=== PATIENT | female | born 1955 | race Caucasian/White ===

== ENCOUNTER 2024-06-27 12:36 | Emergency (ER) | payer MEDICARE, MEDICAID, SELFPAY ==
--- NOTE | ~2024-06-27 | XR_ITS ---
EXAMINATION: XR chest 1V portable DATE: 06/27/2024 13:28 INDICATION: Cough and shortness of breath TECHNIQUE: frontal view of the chest was obtained. COMPARISON: Chest radiograph dated 06/25/2024 FINDINGS: Sk[place]old projects over the lateral right lung. No focal airspace opacities, pulmonary edema, pleural effusion or pneumothorax. The cardiomediastinal silhouette is normal. Three lead pacemaker/AICD seen with leads projecting over the expected locations of the right atrial appendage, apex of the right ve ntricle and overlying the left ventricle likely having traversed the coronary sinus. IMPRESSION: 1. No acute cardiopulmonary disease. Reviewed, dictated and finalized at location A. OISOTOPE TECHNOLOGIST
--- NOTE | 2024-06-27 12:59 | ECG_ITS ---
Test Date: 2024-06-27 13:37:57 Measurements Intervals [place] Rate: 64 P: 59 UT: 143 QRS: 66 QRSD: 131 T: 74 QT: 435 QTc: 450 Interpretive Statements ELECTRONIC VENTRICULAR PACEMAKER ABNORMAL RHYTHM ECG Electronically Signed On 06-27-2024 18:01:11 HERB DOCTOR by Higinio Gil M.D.
[2024-06-27 13:23] LABS: Basophils Absolute Auto 0.1 K/mm3 (0.0-0.1); Basophils Percent Auto 1.5 % (0.2-1.2); Eosinophils Percent Auto 0.4 % (0-4.4); Hematocrit 43.8 % (37.0-47.0); Hemoglobin 14.6 g/dL (12.0-15.0); Lymphocytes Absolute Auto 1.78 K/mm3 (0.9-3.2); Lymphocytes Percent Auto 39.3 % (18.3-44.2); Mean Corpuscular HGB Conc 33.3 g/dl (32-36); Mean Corpuscular Hemoglobin 31.3 pg (26-34); Mean Platelet Volume 9.7 fl (7.4-10.4); Monocytes Absolute Auto 0.7 K/mm3 (0.1-0.6); Monocytes Percent Auto 14.6 % (2.6-8.5); Neutrophils Percent Auto 44.2 % (45.5-73.1); Platelet Count Result 172 k/mm3 (150-375); Red Blood Count 4.66 M/mm3 (4.2-5.4); White Blood Count 4.5 K/mm3 (4.5-10.0)
[2024-06-27] MEDS: IPRATROPIUM 0.5 MG/ALBUTEROL SULFATE 2.5 MG AMPUL.NEB 3 ML INHALATION ×3 (13:25→13:50)
[2024-06-27] MEDS: methylPREDNISolone SOD SUCC 125 MG VIAL IV PUSH (13:28)
[2024-06-27 13:33] LABS: Alanine Aminotransferase 19 U/L (6-35); Albumin Level 3.8 g/dL (3.5-5.1); Alkaline Phosphatase 58 U/L (38-126); Anion Gap 10 mmol/L (4-12); Aspartate Amino Transferase 34 U/L (14-36); Bilirubin,Total 0.6 mg/dL (0.2-1.3); Blood Urea Nitrogen 14 mg/dL (7-17); Calcium 8.2 mg/dL (8.4-10.2); Carbon Dioxide 23 mmol/L (22-30); Chloride 104 mmol/L (98-107); Estimated Glomerular Filt Rate > 60; Glucose 80 mg/dL (65-110); Magnesium 2.1 mg/dL (1.6-2.3); Potassium 4.1 mmol/L (3.4-5.0); Sodium 137 mmol/L (137-145)
[2024-06-27 13:34] LABS: Lactic Acid Reflex 0.8 mmol/L (0.7-2.0)
[2024-06-27 13:37] LABS: INR 1.1; Prothrombin Time 14.1 Seconds (11.1-14.7)
[2024-06-27 13:45] LABS: NT Pro B Type Natriuretic Pept 80 pg/mL (19.9-100); Troponin I < 0.012 ng/mL (0.000-0.034)
[2024-06-27 14:30] VITALS: BP 153/73; PULSE 85; RESP 16; TEMP 36.7; O2SAT 97
[2024-06-27 14:33] VITALS: O2SAT 98
[2024-06-27 14:34] VITALS: BP 125/79; PULSE 83; PULSE 85; RESP 17; O2SAT 98
--- NOTE | 2024-06-27 14:42 | ED_ITS ---
HPI - General Adult General Chief complaint: Shortness of Breath/Dyspnea Stated complaint: shortness of breath, flu positive Time Seen by Provider: 06/27/24 12:52 History of Present Illness HPI narrative: Patient is a 68-year-old female who presents emergency department with chief complaint of shortness of breath patient reports that she has the beginning stages of COPD and reports that she was diagnosed with influenza a on Thursday the patient states that she has been having increasing shortness of breath reports that she had difficulty sleeping throughout the night. Related Data Allergies Allergy/AdvReac Type Severity Reaction Status Date / Time azithromycin Allergy Intermediate Palpitation Verified 06/27/24 14:35 s Penicillins Allergy Intermediate Rash Verified 06/27/24 14:35 Sulfa (Sulfonamide Allergy Intermediate Hives Verified 06/27/24 14:35 Antibiotics) Review of Systems 2 Review of Systems: A 10 system review of systems was completed on the patient and is negative except for what is stated in the HPI. Nursing and ancillary documentation was reviewed. Exam 2 Narrative: GENERAL: Well-appearing, well-nourished, and in no acute distress. HEAD: Normocephalic, atraumatic. EYES: PERRLA and EOMI. ENT: Nares clear, no rhinorrhea or epistaxis. Mucous membranes moist. NECK: Supple. CHEST: Clear to auscultation. No respiratory distress. HEART: Regular rate and rhythm. No murmur heard. Normal peripheral pulses. ABDOMEN: Soft, nontender, nondistended, normal active bowel sounds. EXTREMITIES: Normal range of motion. No edema. SKIN: Warm, dry, no rash. NEURO: No focal deficits. Alert and oriented x3. PSYCH: Normal mood and affect. Course Vital Signs Vital signs: Vital Signs Temperature 36.7 C 06/27/24 14:30 Pulse Rate 85 06/27/24 14:30 Respiratory Rate 16 06/27/24 14:30 Blood Pressure 153/73 H 06/27/24 14:30 Pulse Oximetry 97 06/27/24 14:30 Oxygen Delivery Room Air 06/27/24 14:30 Temperature 36.7 C 06/27/24 14:30 Pulse Rate 85 06/27/24 14:34 Respiratory Rate 17 06/27/24 14:34 Blood Pressure 125/79 06/27/24 14:34 Pulse Oximetry 98 06/27/24 14:34 Oxygen Delivery Room Air 06/27/24 14:33 Medical Decision Making MDM Narrative Medical decision making narrative: Differential diagnosis includes pneumonia, upper respiratory infection, COPD exacerbation Patient received IV Solu-Medrol and a DuoNeb in the ER. Patient is feeling much better at this time. Laboratory studies were obtained on the patient showed a normal CBC normal CMP urinalysis showed no evidence UTI chest x-ray showed no focal infiltrate Vital Signs Vital Signs: Vital Signs Temperature 36.7 C 06/27/24 14:30 Pulse Rate 85 06/27/24 14:30 Respiratory Rate 16 06/27/24 14:30 Blood Pressure 153/73 H 06/27/24 14:30 Pulse Oximetry 97 06/27/24 14:30 Oxygen Delivery Room Air 06/27/24 14:30 Temperature 36.7 C 06/27/24 14:30 Pulse Rate 85 06/27/24 14:34 Respiratory Rate 17 06/27/24 14:34 Blood Pressure 125/79 06/27/24 14:34 Pulse Oximetry 98 06/27/24 14:34 Oxygen Delivery Room Air 06/27/24 14:33 Lab Data 06/27/24 13:11 06/27/24 13:11 Labs: Lab Results 06/27/24 06/27/24 Range/Units 13:11 14:14 WBC 4.5 (4.5-10.0) K/mm3 RBC 4.66 (4.2-5.4) M/mm3 Hgb 14.6 (12.0-15.0) g/dL Hct 43.8 (37.0-47.0) % MCV 94.0 (80-100) fl MCH 31.3 (26-34) pg MCHC 33.3 (32-36) g/dl RDW 14.0 (11.5-14.5) % Plt Count 172 (150-375) k/mm3 MPV 9.7 (7.4-10.4) fl Immature Gran % (Auto) 0.0 (0-0.5) % Neut % (Auto) 44.2 L (45.5-73.1) % Lymph % (Auto) 39.3 (18.3-44.2) % [place] % (Auto) 14.6 H (2.6-8.5) % Eos % (Auto) 0.4 (0-4.4) % Baso % (Auto) 1.5 H (0.2-1.2) % Lymph # (Auto) 1.78 (0.9-3.2) K/mm3 [place] # (Auto) 0.7 H (0.1-0.6) K/mm3 Eos # (Auto) 0.0 (0-0.3) K/mm3 Baso # (Auto) 0.1 (0.0-0.1) K/mm3 Abs Immat Gran (auto) 0.00 (0.00-0.031) K/mm3 Absolute Neuts (auto) 2.0 (1.3-6.7) K/mm3 Absolute Nucleated RBC 0.000 (0.0-0.012) K/mm3 Nucleated RBC % 0.0 (0.0-0.2) % PT 14.1 (11.1-14.7) Seconds INR 1.1 APTT 29.0 (22.3-36.8) Seconds Sodium 137 (137-145) mmol/L Potassium 4.1 (3.4-5.0) mmol/L Chloride 104 (98-107) mmol/L Carbon Dioxide 23 (22-30) mmol/L Anion Gap 10 (4-12) mmol/L BUN 14 (7-17) mg/dL Creatinine 0.84 (0.7-1.0) mg/dL Estim Creat Clear Calc Not Reportable Estimated GFR > 60 (59 - ) Glucose 80 (65-110) mg/dL Lactic Acid 0.8 (0.7-2.0) mmol/L Calcium 8.2 L (8.4-10.2) mg/dL Magnesium 2.1 (1.6-2.3) mg/dL Total Bilirubin 0.6 (0.2-1.3) mg/dL AST 34 (14-36) U/L ALT 19 (6-35) U/L Alkaline Phosphatase 58 (38-126) U/L Troponin I < 0.012 (0.000-0.034) ng/mL NT-Pro-B Natriuret Pep 80 (19.9-100) pg/mL Total Protein 7.0 (6.3-8.2) g/dL Albumin 3.8 (3.5-5.1) g/dL Urine Color Yellow (Yellow) Urine Appearance Clear (Clear) Urine pH 5.5 (5.0-9.0) Ur Specific [place] 1.017 (1.001-1.035) Urine Protein Negative (Negative) mg/dL Urine Glucose (UA) Negative (Negative) mg/dL Urine Ketones Negative (Negative) mg/dL Ur Blood (Man) Negative (Negative) Urine Nitrate Negative (Negative) Urine Bilirubin Negative (Negative) Urine Urobilinogen 1.0 (<2.0) mg/dL Leukocyte Esterase Rfl Negative (Negative) VIKTORIA/UL Discharge Plan Discharge Clinical Impression: Influenza A Patient Disposition: Home, Self-Care Condition: Stable Instructions: Antibiotic Form, Influenza (ED), Acute Bronchitis (ED) Patient Language: Bahamian Prescriptions: New prednisone 20 mg tablet 40 mg PO DAILY 5 Days Qty: 10 0RF No Action benzonatate 100 mg capsule 100 mg PO TID PRN (Reason: cough) Qty: 14 0RF ondansetron 4 mg tablet,disintegrating 4 mg PO Q8H PRN (Reason: nausea and vomiting) Qty: 14 0RF Follow-up/Referrals: PHYSICIAN,DRUPAL PHP DEVELOPER [Primary Care Provider] - Parker Stratton MD [Physician] - Time of Disposition: 14:55
[2024-06-27 14:43] LABS: Add Urine Microscopic? NO; Appearance Urine Clear (Clear); Bilirubin Urine Negative (Negative); Blood Urine Negative (Negative); Color Urine Yellow (Yellow); Glucose Urine UA Negative (Negative); Ketones Urine Negative (Negative); Leukocyte Esterase Ur Negative LEU/UL (Negative); Nitrate Urine Negative (Negative); Protein Urine Negative (Negative); Specific Grav Ur 1.017 (1.001-1.035); pH Urine 5.5 (5.0-9.0)
== END 2024-06-27 15:00 | disposition home or self-care (01) ==
PROVIDERS: Emergency Provider Emergency Medicine
DX: J10.1 Influenza due to other identified influenza virus with other respiratory manifestations (principal); Z20.822 Contact with and (suspected) exposure to COVID-19; J44.9 Chronic obstructive pulmonary disease, unspecified
CPT/HCPCS: 36415; 71045; 80053; 81003; 83605; 83735; 83880; 84484; 85025; 85610; 85730; 93005; 94640; 96374; 99284; J2919

== ENCOUNTER 2025-03-13 13:39 | Outpatient (CLI) | payer MEDICARE, MEDICAID, SELFPAY ==
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
--- NOTE | ~2025-03-13 | CT_ITS ---
EXAMINATION: CT foot RT wo con DATE: 03/13/2025 14:15 INDICATION: Nonunion right foot metatarsal fractures TECHNIQUE: Computed tomography (CT) of the right foot was performed without intravenous contrast. Automated exposure control and iterative reconstruction technique were employed. The dose-length product was 413.05 mGy-cm. COMPARISON: None FINDINGS: Instrumented arthrodesis across the first-third tarsal metatarsal joints with dorsal plate and screw fixations. No lucency surrounding the screws to suggest loosening or infection. There is an additional screw spanning the first tarsometatarsal joint. There appears be solid osseous fusion across portions of the joint spaces. There is a healing nondisplaced intra-articular fracture at the lateral base of the fifth metatarsal with fusion across portions of the fracture plane although there is still some additional lucency along the peripheral margins of the fracture. There is suggestion of buckling along the lateral nonarticular cortex of the proximal cuboid also suggestive of sequela of old healed fracture. Additional likely old healed fracture at the anterior process of the calcaneus. Alignment of the right foot remains essentially anatomic. No acute fractures identified. 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 Small Achilles calcaneal spur. Soft tissues are unremarkable. IMPRESSION: 1. Instrumented first-third tarsal metatarsal arthrodesis with osseous fusion. 2. Advanced healing with solid osseous bridging across a nondisplaced intra- articular fracture at the lateral base of the fifth metatarsal. 3. Suggestion of additional old healed fractures at the lateral cortex of the cuboid and at the anterior process of the calcaneus also an essentially anatomic alignment. Reviewed, dictated and finalized at location A. IMPRESSION: 1. Instrumented first-third tarsal metatarsal arthrodesis with osseous fusion. 2. Advanced healing with solid osseous bridging across a nondisplaced intra-art icular fracture at the lateral base of the fifth metatarsal. 3. Suggestion of additional old healed fractures at the lateral cortex of the c uboid and at the anterior process of the calcaneus also an essentially anatomic alignment.
--- OUTSIDE RECORDS SUMMARY | 2025-03-13 14:35 | XMS_ITS | Clinical Summary ---
Author Organization [facility] and [facility] Address [address] [place] [address] Care Team Providers Care Case Finisher Name Role Phone Lopez Andersen MD Primary Care Provider Source Comments This information has been disclosed to you from records protected by Federalconfidentiality rules (42 CFR Part 2). The Federal rules prohibit you frommaking any further disclosure of this informationunless further disclosure isexpressly permitted by the written consent of the person to whom it pertains oras otherwise permitted by 42 CFR Part 2. The information released containselements of the medical record deemed pertinent for the care of the patient.[facility] and [facility] Allergies Active Allergy Reactions Criticality Noted Date Comments Aminobenzoic Acid Unknown 05/22/2014 Anesthetics - Amide Type - Select Amino Amides Palpitations Medium 08/05/2014 May have been more a side effect of an epinephrine-contain ing local dental anesthetic Anesthetics - Belkis Type- Parabens Unknown Medium 08/05/2014 Aspirin Unknown 03/17/2014 Atazanavir Other (Specify with Comments) Medium 08/05/2014 Elevated AST/ALT 10 x normal. Occurred in combination with raltegravir, so it is unknown which drug was causative. Carvedilol Shortness of Breath 08/06/2020 Codeine Unknown 03/17/2014 Iodinated Contrast Media Unknown 03/26/2023 Diazepam Altered mental statu s - mild Medium 08/05/2014 Delerium Erythromycin Palpitations 03/09/2017 Erythromycin Base Unknown 03/17/2014 Fluticasone Shortness of Breath 06/09/2018 Penicillins Unknown,Hives/urtica r ia 03/17/2014 Raltegravir Other (Specify with Comments) Medium 08/05/2014 Elevated AST/ALT 10 x normal. Occurred in combination with atazanavir, so it is unknown which drug was causative. Sulfa (Sulfonamide Antibiotics) Hives/urticaria,Itchi ng, pruritus 03/17/2014 Sulfasalazine Hives/urticaria 03/09/2017 Tetracycline Unknown 03/17/2014 Medications * This document contains information received from the source organization and may not represent a complete record from that organization. hydroCHLOROthiazid e (HYDRODIURIL) 12.5 mg tablet take 1 Tablet (12.5 mg total) by mouth every day Active nicotine (Nicoderm) 21 mg/24 hr patch apply 1 Patch to skin daily Active aspirin 81 mg chewable tablet take 1 Tablet (81 mg total) by mouth daily Active doravirine 100 mg TABS take 1 Tablet by mouth every day Active AdderalL 30 mg TABS Take 30 mg by mouth 2 times a day 60 tablet 5 Active methylphenidate HCl (Ritalin) 10 mg tabletIndications: Attention deficit hyperactivity disorder (ADHD), unspecified ADHD type Take 1 tablet by mouth 2 (two) times daily. 60 tablet 5 Active methylphenidate HCl (Ritalin) 20 mg tablet Take 1 tablet by mouth 2 (two) times daily. 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 01/04/03: LEEP (-). 09/27/03: ECC (-). 11/10/03: Cx bx (- ). 01/07/07: Cx bx (-); ECC with multiple dsyplastic epitherlium. 05/11/07: Cone bx with carcinoma in-situ, margins clear; ECC (-). 11/13/10: Vaginal bx with acute inflammation and necrosis; suture material. Recurrent herpes labialis 01/02/2014 Osteoarthritis 07/14/2013 Chronic hepatitis C 05/31/2013 Overview (03/28/2014): Genotype 3a GERD (gastroesophageal reflux disease) 3 Human immunodeficiency virus (HIV) disease Overview (11/11/2014): Diagnosed in 08/06. Initial CD4 = jillian 500/39%. Maximum viral load 93k in 09/15. No h/o AIDS dx or OI's. Triple NRTI therapy with long-term poor tolerance and chronic underdosing. However, consistent full viral suppression with minimal NRTI resistance on prior genotype. No HLA [id number] on file. 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 09/27/03: ASCUS; (+) high risk HPV. 11/26/06: HGSIL, carcinoma in-situ. 06/09/08: (-). 05/24/09: (-). 11/13/10: (-). 01/13/12: Reactive cellular changes. Chronic nausea Overview (08/05/2014): Secondary to antiretroviral therapy Atrophic vaginitis Resolved Problems Problem Noted Date Diagnosed Date Resolved Date Dizziness 03/27/2023 03/27/2023 Encounters Date Type Department Care Team Description 02/08/2025 Refill POSITIVE CARE - [address] [place] [address] Louis Burleson MD Attention deficit hyperactivity disorder (ADHD), unspecified ADHD type [F90.9] from Last 3 Months Immunizations Immunization Administration Dates Next Due Hep A, adult 01/08/2001 Pneumococcal polysaccharide (PPSV23) (Pneumovax) 04/24/2008 Family History Medical History Relation Comments HIV Brother COPD Father Cancer Father Mesothelioma Relation Status Comments Brother Father Social History Tobacco Use Types Packs/Day Years Used Date Smoking Tobacco: Former Cigarettes 0.5 55 0 07/27/1964 - 07/27/2019 Smokeless Tobacco: Never Tobacco Cessation:Counseling Given: Not Answered Comments:on and off Alcohol Use Standard Drinks/Week Comments Yes 0 (1 standard drink = 0.6 oz pure alcohol) Lemon drop martini occasionally Comments No Sex and Gender Information Value Date Recorded Sex Assigned at Not on file Legal Sex Female 12:35 AM PDT Gender Identity Not on file Sexual Orientation Not on file Last Filed Vital Signs Vital Sign Reading Time Taken Comments Blood Pressure 128/62 03/27/2023 11:00 PM PDT Pulse 64 03/27/2023 11:00 PM PDT Temperature 36.7 C (98.1 F) 03/27/2023 11:00 PM PDT Respiratory Rate 19 03/27/2023 11:00 PM PDT Oxygen Saturation 97% 03/27/2023 11:00 PM PDT Inhaled Oxygen Concentration - - Weight 69.2 kg (152 lb 8.9 oz) 03/27/2023 1:41 A M PDT Height 160 cm (5' 3) 03/26/2023 12:37 PM PDT Body Mass Index 27.02 03/26/2023 12:37 PM PDT Plan of Treatment Health Maintenance Due Date Last Done Comments CT Colonography 1953 Colonoscopy 1955 Colonoscopy 1953 Colorectal Cancer Screening 1953 FIT (Fecal Immunochemical Test) 1953 Fecal DNA 1953 Sigmoidoscopy 1953 DTaP/Tdap/Td Immunizations ( 1 - Tdap) 1972 Zoster Vaccine (1 of 2) 1972 Pneumococcal Vaccine 50+ Yea rs (2 of 2 - PCV) 04/24/2009 04/24/2008 RSV Vaccine (1 - Risk 60-74 years 1-dose series) 2013 BONE DENSITY SCREEN 2018 MAMMOGRAM 07/12/2020 07/12/2018, 06/2017, 06/20/2016, Additional history exists Lung Cancer Screening 06/17/2022 06/17/2021, 020 INFLUENZA VACCINE (#1) 2025 06/22/2018 (Hope Betancur) Hepatitis B Screening Discussion Completed 08/30/19 15 HEPATITIS C SCREENING Discontinued 09/09/2017 Medical Devices Implanted Type Area Territory Sales Manager Medical Device Identifier Shelf Expiration Date Model / Serial / Lot Pacemaker Implanted:01/06 (Quantity not on file) Pacemaker [employer] [id number] / / Description:Medtronic [place] , model # [id number] RA- 5076-45cm LV- [id number] RV- [id number] Procedures Procedure Name Priority Date/Time Associated Diagnosis Comments MAMMO BREAST SCREENING TOMOSYNTHESIS Routine 07/12/2018 11:41 AM PST Screening breast examination HEPATITIS C RNA PCR QUANTITATIVE Routine 09/09/2017 4:51 PM PDT Chronic hepatitis C without hepatic coma (CMS-HCC) HBSAG Routine 08/29/2014 2:00 PM PDT Health care maintenance from Last 3 Months or Most Recently Relevant to Health Maintenance Results * Mammo Breast Screening Tomosynthesis (07/12/2018 11:41 AM PST) Anatomical Region Laterality Modality Breast Bilateral Mammography 07/12/2018 1:27 PM PST Impressions 07/12/2018 4:47 PM PST IMPRESSION: 1. RIGHT BREAST: Negative. BI-RADS 1. 2. LEFT BREAST: Negative. BI-RADS 1. 3. Recommend routine follow-up screening mammogram. If additional imaging is recommended, a [facility] Waste Collector will contact the patient to coordinate additional imaging. A lay letter regarding these findings will also be sent to the patient. This report will be faxed, mailed, or sent by [employer] electronic communication to the referring clinician upon finalization. Screening Guidelines: For asymptomatic women at average breast cancer risk, current guidelines recommend screening mammography every 1-2 years, starting at age 40-50 years. For asymptomatic women with a personal history of treated breast cancer who have not had bilateral mastectomies, current guidelines recommend mammography every year. The mammogram can be a screening or diagnostic examination, based on patient/provider preference. For the first 3 years following lumpectomy, Foster recommends the mammogram be a diagnostic examination. The addition of supplemental screening breast MRI for women at elevated breast cancer risk should be based on national guidelines including those of the [employer], the [employer] Cancer Society and the National Comprehensive Cancer Network. Physician to Physician Radiology Consult Line: Signed Narrative 07/12/2018 4:47 PM PST [facility] Breast Screen Jeff DATE: 07/12/2018 11:00 INDICATION: Female, 62 years old, asymptomatic, referred for screening mammogram. COMPARISON: 01/24/2015, 06/20/2016, and 07/09/2017 PROCEDURE COMMENTS: Full-field digital 2D (synthetic) and tomosynthesis mammogram images were obtained and computer-aided detection (CAD) was applied. FINDINGS: The breast tissue is almost entirely fatty. There are no significant masses, calcifications or other abnormalities. Procedure Note Vida Colunga MD - 07/12/2018 [facility] Breast Screen Jeff DATE: 07/12/2018 11:00 INDICATION: Female, 62 years old, asymptomatic, referred for screeningmammogram. COMPARISON: 01/24/2015, 06/20/2016, and 07/09/2017 PROCEDURE COMMENTS: Full-field digital 2D (synthetic) and tomosynthesismammogram images were obtained and computer-aided detection (CAD) wasapplied. FINDINGS: The breast tissue is almost entirely fatty. There are no significant masses, calcifications or other abnormalities. IMPRESSION: 1. RIGHT BREAST: Negative. BI-RADS 1. 2. LEFT BREAST: Negative. BI-RADS 1. 3. Recommend routine follow-up screening mammogram. If additional imaging is recommended, a [facility] Imaging[facility] will contact the patient to coordinate additional imaging.A lay letter regarding these findings will also be sent to the patient.This report will be faxed, mailed, or sent by [employer] to the referring clinician upon finalization. Screening Guidelines: For asymptomatic women at average breast cancer risk, current guidelinesrecommend screening mammography every 1-2 years, starting at age 40-50years. For asymptomatic women with a personal history of treated breast cancerwho have not had bilateral mastectomies, current guidelines recommendmammography every year. The mammogram can be a screening or diagnosticexamination, based on patient/provider preference. For the first 3 yearsfollowing lumpectomy, Foster recommends the mammogram be a diagnosticexamination. The addition of supplemental screening breast MRI for women at elevatedbreast cancer risk should be based on national guidelines including thoseof the [employer], the [employer] Cancer Society and [facility] Comprehensive Cancer Network. Physician to Physician Radiology Consult Line: Signed Louis Burleson MD IMG BREAST IMAGING O RDERABLES Final Result * (ABNORMAL) Hep C RNA PCR Quant (09/09/2017 4:51 PM PDT) Specimen Serum 2017 1:28 PM PDT [facility] HCV RNA Detected( A) Not Detected 2017 1:28 PM PDT [facility] Result 382,510 IU/mL 2017 1:28 PM PDT [facility] Result Log10 5.58 Log10 IU/mL 2017 1:28 PM PDT [facility] Blood BLOOD SPECIMEN / Unknown Venipuncture / Unknown 09/09/2017 4:51 PM PDT 09/09/2017 4:51 PM PDT Narrative [facility] - 2017 1:28 PM PDT TEST PARAMETERS AND METHODOLOGY Linear Range: 15 to 25,000,000 IU/mL (1.18 to 7.40 Log10 IU/mL) Methodology: Reverse Transcriptase-Polymerase Chain Reaction (RT-PCR) This test is approved by the U.S. Food and Drug Administration. Validated specimen type: Serum Result [facility] Lopez Andersen MD LAB BLOOD ORDERABLES Fi nal Result [facility] [address] [place], [place] [id number] * HBSAG (08/29/2014 2:00 PM PDT) HEP B Surface Antigen Negative Negative 08/29/2014 10:43 PM PDT [facility] Interpretation Screening for HBsAg is NEGATIVE. This result may not rule out infection with hepatitis B virus (HBV). If both HBsAg and total anti-HBc antibody are negative, then current HBV infection is unlikely. 08/29/2014 10:43 PM PDT [facility] Blood BLOOD SPECIMEN / Unknown Venipuncture / Unknown 08/29/2014 2:00 PM PDT 08/29/2014 2:00 PM PDT Lopez Andersen MD LAB BLOOD ORDERABLES Fi nal Result [facility] [address] [place] [address] from Last 3 Months or Most Recently Relevant to Health Maintenance Insurance MEDICARE [facility] Advance Directives Documents on File Type Date Recorded Patient Waste Collector Expl anation Advance Directives and Nanciein g Will 03/26/2023 1:47 PM * Cardiac Arrest - Full Code (Latest Code Status on File) Date Activated Date Inactivated Comments 03/27/2023 1:40 AM 03/28/2023 3:59 PM Question Answer Comments Intubation Outside Cardiac Arrest (Requires ICU) : Did Not discuss Other Interventions: Did Not Discuss Treatment Location: Did Not Discuss Philosophy of Care: Did Not Discuss Discussed With: Patient Care Teams Case Finisher Relationship Specialty [place] [address] [place] [address] PCP - General Internal Medicine 08/29/14
--- OUTSIDE RECORDS SUMMARY | 2025-03-13 14:35 | XMS_ITS | Encounter Summary ---
Author Organization [facility] and [facility] Address [address] [place] [address] Care Team Providers Care Accountant Name Role Phone Lopez Andersen MD Primary Care Provider Reason for Visit * Reason Comments Medication Refill Encounter Details Date Type Department Care Team (Late st Contact Info) Description 07/21/2018 Refill POSITIVE CARE - [address] Floor [place], [place] [id number] Sammy Pelletier MD [address] [place] [address] Pr[address]hu [facility] [address] [place], [place] [phone] Attention deficit hyperactivity disorder (ADHD), unspecified ADHD type [F90.9] Social History Tobacco Use Types Packs/Day Years Used Date Smoking Tobacco: Every Day Cigarettes 0.5 45 Smokeless Tobacco: Never Comments:on and off Alcohol Use Standard Drinks/Week Comments Yes 0 (1 standard drink = 0.6 oz pur e alcohol) Comments No Sex and Gender Information Value Date Recorded Sex Assigned at Not on file Legal Sex Female 12:35 AM PDT Gender Identity Not on file Sexual Orientation Not on file documented as of this encounter Miscellaneous Notes * Telephone Encounter - Linda Kang - 07/21/2018 1:00 PM PST CONSTANCE: 07/07/[address] Andersen documented in this encounter Plan of Treatment Not on file documented as of this encounter Visit Diagnoses Diagnosis Attention deficit hyperactivity disorder (ADHD), unspecified ADHD type documented in this encounter Additional Health Concerns Infection Onset Date Last Indicated Resolved Time PUI1 COVID-19 (2019-nCoV) 08/06/2020 08/06/2020 8:37 PM PST documented as of this encounter Care Teams Accountant Relationship Specialty [place] [address] [place] [address] PCP - General Internal Medicine 08/29/14 documented as of this encounter
--- OUTSIDE RECORDS SUMMARY | 2025-03-13 14:35 | XMS_ITS | Encounter Summary ---
Author Organization [facility] and [facility] Address [address] [place] [address] Care Team Providers Care Nursing Program Director Name Role Phone Lopez Andersen MD Primary Care Provider Reason for Visit * Reason Comments Medication Refill Encounter Details Date Type Department Care Team (Late st Contact Info) Description 09/20/2018 Refill Positive Care [address] [address] Louis Burleson MD [address] [place], [place] [id number] Attention deficit hyperactivity disorder (ADHD), unspecified ADHD [...] encounter Miscellaneous Notes * Telephone Encounter - Sammy Pelletier MD - 09/20/2018 11:11 AM PDT Due 09/25; will fill then * Telephone Encounter - Linda Kang - 09/20/2018 11:01 AM PDT Refill request Say:02/2018 w/ bebeto Name from pharmacy: RITALIN 10MG TAB Will file in chart as: methylphenidate HCl (RITALIN) 10 mg TABS Sig: TAKE 1 TABLET BY MOUTH TWICE DAILY Disp: 60 Tab (Pharmacy requested: 60 Each) ? Refills: 0 Start: 09/20/2018 Class: E-Prescribe For: Attention deficit hyperactivity disorder (ADHD), unspecified ADHD type Requested on: 08/23/2018 documented in this encounter Plan of Treatment Not on file documented as of this encounter Visit Diagnoses Diagnosis Attention deficit hyperactivity disorder (ADHD), unspecified ADHD type documented in this encounter Additional Health Concerns Infection Onset Date Last Indicated Resolved Time PUI1 COVID-19 (2019-nCoV) 08/06/2020 08/06/2020 8:37 PM PST documented as of this encounter Care Teams Nursing Program Director Relationship Specialty [place] [address] [place] [address] PCP - General Internal Medicine 08/29/14 documented as of this encounter
--- OUTSIDE RECORDS SUMMARY | 2025-03-13 14:35 | XMS_ITS | Encounter Summary ---
Author Organization [facility] and [facility] Address [address] [place] [address] Care Team Providers Care Logging Crew Supervisor Name Role Phone Lopez Andersen MD Primary Care Provider Encounter Details Date Type Department Care Team (Latest Contact Info) Description 07/03/2020 Orders Only [facility] DEPT Provider, MD Yosef Social History Tobacco Use Types Packs/Day Years [...] on file documented as of this encounter Plan of Treatment Not on file documented as of this encounter Procedures Procedure Name Priority Date/Time Associated Diagnosis Comments [facility] OUTSIDE CARDIOLOGY - SCANNED 07/03/2020 12:00 AM PST documented in this encounter Results * [facility] OUTSIDE CARDIOLOGY - SCANNED (07/03/2020 12:00 AM PST) 07/03/2020 us Scan Provider ECG ORDERABLES Final Result documented in this encounter Visit Diagnoses Not on filedocumented in this encounter Additional Health Concerns Infection Onset Date Last Indicated Resolved Time PUI1 COVID-19 (2019-nCoV) 08/06/2020 08/06/2020 8:37 PM PST documented as of this encounter Care Teams Logging Crew Supervisor Relationship Specialty [place] [address] [place] [address] Internal [place] [address] PCP - General Internal Medicine 08/29/14 documented as of this encounter
--- OUTSIDE RECORDS SUMMARY | 2025-03-13 14:35 | XMS_ITS | Encounter Summary ---
Author Organization [facility] and [facility] Address [address] [place] [address] Care Team Providers Care Waste Water Worker Name Role Phone Lopez Andersen MD Primary [...] PST documented in this encounter Results * [facility] OUTSIDE CARDIOLOGY - SCANNED (07/03/2020 12:00 AM PST) 07/03/2020 us Scan Provider ECG ORDERABLES Final Result documented in this encounter Visit Diagnoses Not on filedocumented in this encounter Additional Health Concerns Infection Onset Date Last Indicated Resolved Time PUI1 COVID-19 (2019-nCoV) 08/06/2020 08/06/2020 8:37 PM PST documented as of this encounter Care Teams Waste Water Worker Relationship Specialty [place] [address] [place] [address], Internal Medicine [place] [address] PCP - General Internal Medicine 08/29/14 documented as of this encounter
--- OUTSIDE RECORDS SUMMARY | 2025-03-13 14:35 | XMS_ITS | Encounter Summary ---
Author Organization [facility] and [facility] Address [address] [facility] [place] [address] Care Team Providers Care Professor Of Family Medicine Name Role Phone Lopez Andersen MD Primary Care Provider Louis Burleson MD Unavailable [phone] Pcp, Giles Martinez Unavailable Unavailable Julia Oreilly MA Unavailable Louis Burleson MD Unavailable Jim Demarco RN Unavailable Unavailab Libia Hernandez RN Unavailable Encounter Details Date Type Department Care Team (Late st Contact Info) Description 01/05/2024 Bulk Order Quality Improvement [address] [place] [address] [place] [address] [place] [address] Social History Tobacco Use Types Packs/Day Years Used Date Smoking Tobacco: Some Days Cigarettes 1 50 Started: 10/01/1969; Last attempted to quit: 10/02/2019 Smokeless Tobacco: Never Alcohol Use Standard Drinks/Week Comments Not Currently 0 (1 standard drink = 0.6 oz pur e alcohol) once a month AUDIT-C Answer Date Recorded Frequency of Alcohol Consumption Never 07/25/2018 Average Number of Drinks Not on file 019 Frequency of Binge Drinking Not on file 07/09 Comments No Sex and Gender Information Value Date Recorded Sex Assigned at Not on file Legal Sex Female 11:31 AM PST Gender Identity Not on file Sexual Orientation Not on file Occupation Industry Job Start Date Job End Date Disabled Not on file Not on file Not on file Retired Not on file Not on file Not on file documented as of this encounter Plan of Treatment Not on file documented as of this encounter Visit Diagnoses Not on filedocumented in this encounter Care Teams Professor Of Family Medicine Relationship Specialty [place] [address] [place] [address] PCP - General Internal Medicine 07/16/18 Pcp, Giles Deng [facility] [address] [place] [address] PCP - Other Care Provider 06/08/22 [place] [address] [place] [id number] Psychotherapist Psychiatry 07/30/18 01/08/25 Julia Oreilly, [address] [address] Agriculturist Case Management 01/09/25 01/11/25 Louis Burleson MD [address] [facility] [address] [place] [address] Psychiatry 07/30/18 Jim Demarco, JAYLON [address] [place] [address] Body And Fender MechanicGraduate Studies Dean 01/12/25 01/12/25 Libia Cota, JAYLON [address] [place], [place] [id number] Body And Fender MechanicGraduate Studies Dean 01/13/25 01/17/25 documented as of this encounter
--- OUTSIDE RECORDS SUMMARY | 2025-03-13 14:35 | XMS_ITS | Encounter Summary ---
Author Organization [facility] and [facility] Address [address] [place] [address] Care Team Providers Care Fire Manager Name Role Phone Lopez Andersen MD Primary Care Provider Reason for Visit * Reason Comments Medication Refill Encounter Details Date Type Department Care Team (Late st Contact Info) Description 07/21/2018 Refill POSITIVE CARE - [address] [place], [place] [phone] Sammy Pelleiter MD [address] [place] [address] Pr[address]hu [facility] [address] [place], [place] [phone] Attention deficit hyperactivity disorder (ADHD), unspecified ADHD [...] Telephone Encounter - Linda Kang - 07/21/2018 1:40 PM PST CONSTANCE: 07/07/[address] Andersen documented in this encounter Plan of Treatment Not on file documented as of this encounter Visit Diagnoses Diagnosis Attention deficit hyperactivity disorder (ADHD), unspecified ADHD type documented in this encounter Additional Health Concerns Infection Onset Date Last Indicated Resolved Time PUI1 COVID-19 (2019-nCoV) 08/06/2020 08/06/2020 8:37 PM PST documented as of this encounter Care Teams Fire Manager Relationship Specialty [place] [address] [place] [address] PCP - General Internal Medicine 08/29/14 documented as of this encounter
--- OUTSIDE RECORDS SUMMARY | 2025-03-13 14:36 | XMS_ITS | Encounter Summary ---
Author Organization [facility] and [facility] Address [address] [place] [address] Care Team Providers Care Project Executive Name Role Phone Lopez Andersen MD Primary Care Provider Encounter Details Date Type Department Care Team (Late st Contact Info) Description 10/12/2024 Telephone POSITIVE CARE - [place] [address] [facility], [address]nd Floor [place], [place] [id number] Louis Burleson MD [address] [facility] [address] [place] [address] Social History Tobacco Use Types Packs/Day Years Used Date Smoking Tobacco: Former Cigarettes 0.5 55 0 07/27/1964 - 07/27/2019 Smokeless Tobacco: Never Comments:on and off Alcohol [...] encounter Miscellaneous Notes * Telephone Encounter - Papi Tovar - 10/12/2024 2:41 PM PDT Hi , I called the pharmacy and they confirmed pt was prescribed these two medications by and pt picked up on 10/10/24. methylphenidate HCl (Ritalin) 10 mg tablet methylphenidate HCl (Ritalin) 20 mg tablet Pharmacy would like to confirm if you would like to cancel the rx for AdderalL 30 mg TABS ? Thank you Ryan Copied from [facility] #[id number]. Topic: PRESCRIPTION - PRIOR AUTH REQUEST >> October 06, 2024 9:33 AM Jackelin Ba wrote: Who's calling Pharmacy: Name of medication(s): AdderalL 30 mg TABS Reference #: Details: Insurance does not cover brand name so pharmacy inquiring if Dr can submit PA. Please advise TAT advised: 48 hrs Would patient like to receive response via to be? No documented in this encounter Plan of Treatment Not on file documented as of this encounter Visit Diagnoses Not on filedocumented in this encounter Care Teams Project Executive Relationship Specialty [place] [id number] [place] [address] PCP - General Internal Medicine 08/29/14 documented as of this encounter
--- OUTSIDE RECORDS SUMMARY | 2025-03-13 14:36 | XMS_ITS | Clinical Summary ---
Author Organization [facility] Address [address] [place] [address] Care Team Providers Care Traffic Officer Name Role Phone Lopez Andersen MD Primary Care Provider Pcp, Giles Martinez Unavailable Unavailable Louis Burleson MD Unavailable [phone] Source Comments This information has been disclosed to you from records protected by Federal confidentiality rules (42 CFR part 2). The Federal rules prohibit you from making any further disclosure of this information unless further disclosure is expressly permitted by the written consent of the person to whom it pertains or as otherwise permitted by 42 CFR part 2. A general authorization for the release of medical or other information is NOT sufficient for this purpose. The Federal rules restrict any use of the information to criminally investigate or prosecute any alcohol or drug abuse patient.[facility] Allergies Active Allergy Reactions Criticality Noted Date Comments Aminobenzoate Other 07/25/2018 Unknown Anesthetics, Amide Other Low 07/25/2018 Palpitations Anesthetics, Belkis Other 07/25/2018 Unknown Aspirin 03/17/2014 Atazanavir Other High 07/25/2018 Elevated AST/ALT 10 x normal. Occurred in combination with raltegravir, so it is unknown which drug was causative Codeine Other 07/25/2018 Unknown Doxycycline Other Medium 11/23/2024 Back pain Apixaban 02/18/2021 SOB Erythromycin Other Low 07/25/2018 Palpitations Fluticasone Dyspnea Low 07/28/2018 Developed shortness of breath after using nasal fluticasone Iodinated Diagnostic Agents Rash, urticarial 02/18/2021 Lisinopril 01/16/2020 Hives Parabens 08/05/2014 Penicillins Rash, Unspecified Medium 07/25/2018 Keflex ok per patient Raltegravir Other High 07/25/2018 Elevated AST/ALT 10 x normal. Occurred in combination with atazanavir, so it is unknown which drug was causative Rosuvastatin Rash, urticarial Medium 01/09/2020 Sulfa Antibiotics Other 07/25/2018 Unknown Sulfasalazine Rash, urticarial High 07/25/2018 Tetracycline Hcl Other 07/25/2018 Unknown Verapamil Other Medium 03/16/2023 Edema Medications cannabis (MEDICINAL MARIJUANA) Use as directed. Active beclomethasone (QNASL) 80mcg Nasal InhalerIndications: Allergic rhinitis, unspecified seasonality, unspecified trigger Administer two Sprays to each nostril daily 8.7 g 11 05/13/20 24 Active hydroCHLOROthiazide (MICROZIDE) 12.5mg CapIndications:Esse ntial hypertension Take one Cap by mouth twice daily 180 Cap 3 10/08/19 25 Active albuterol (PROAIR HFA, PROVENTIL HFA, VENTOLIN HFA) 108 (90 Base) MCG/ACT Oral InhalerIndications: Chronic obstructive pulmonary disease, unspecified COPD type (CMS/HCC) Inhale two Puffs by mouth every 4 to 6 hours as needed for Wheezing/Shor tness of Breath or Cough 1 Each 11 10/11/19 25 Active RITALIN 10 MG TabIndications:Adul t attention deficit disorder Take one Tab by mouth twice daily Take with 20 mg Ritalin for a total of 30 mg bid 60 Tab 10/11/19 25 Active RITALIN 20 MG TabIndications:Adul t attention deficit disorder Take one Tab by mouth twice daily with breakfast and lunch 60 Tab 10/11/19 25 Active lamiVUDine (EPIVIR) 300mg TabIndications:Mayte n immunodeficiency virus (HIV) disease (CMS/HCC) Take one Tab by mouth daily 30 Tab 11 10/11/19 25 Active doravirine (PIFELTRO) 100mg TabIndications:Mayte n immunodeficiency virus (HIV) disease (CMS/HCC) Take one Tab by mouth daily 30 Tab 11 10/11/19 25 Active amphetamine/dextroa mphetamine (ADDERALL) 30mg TabIndications:Adul t attention deficit disorder Take one Tab by mouth twice daily 60 Tab 01/10/20 25 Active HYDROcodone/acetami nophen (NORCO 5) 5mg/325mg TabIndications:Nico ranc dislocation, right, sequela Take one Tab by mouth at bedtime as needed 15 Tab 01/10/20 25 Active umeclidinium/vilant ganesh (ANORO ELLIPTA) 62.5mcg/25mcg Oral InhalerIndications: Chronic bronchitis, unspecified chronic bronchitis type (CMS/HCC),Chronic obstructive pulmonary disease, unspecified COPD type (CMS/HCC) Inhale one Puff by mouth daily 1 Each 5 01/19/20 25 Active ibuprofen (MOTRIN) 400mg Tab Take one Tab by mouth every 6 hours as needed 12/30/19 25 Active nicotine (NICODERM CQ) 21mg/24hr PatchIndications:Vanessa guerrero nicotine dependence without complication Apply 1 patch onto a clean dry area of the skin every 24 hours 28 Patch 3 01/28/20 25 Active mometasone (NASONEX) 50MCG/ACT Nasal SuspIndications:All ergic rhinitis, unspecified seasonality, unspecified trigger Administer two Sprays to each nostril daily 1 Each 03/07/20 25 Active aspirin (ASPIRIN LOW DOSE) 81mg ChewtabIndications: Coronary artery disease involving klawock coronary artery of klawock heart without angina pectoris chew 0.5 tablets by mouth daily. 15 Tab 14 03/08/20 25 Active mometasone (NASONEX) 50MCG/ACT Nasal Susp Apply two Sprays nasally as directed daily 10/08/19 25 025 Discontinu ed(Duplica te Entry - NO pharmacy notice and NO AVS printing) Active Problems Problem Noted Date Diagnosed Date Essential hypertension 04/14/2023 Dilated cardiomyopathy 01/13/2022 FYI: CONTROLLED MEDICATION (NO BILL) 01/09/2021 Overview (11/20/2022): Receives Adderall 30 mg, #60/month and Ritalin, 10 mg + 20 mg for a total of 30 mg bid, #60 of each per month, brand name only. Okay to refill if seen in the last six months Preventative health care 07/25/2018 Osteoarthritis Human immunodeficiency virus Overview (07/26/2018): Diagnosed in 08/06. Initial CD4 = jillian 500/39%. Maximum VL 93k in 09/15. No h/o AIDS dx or OI's. Chronically takes cART 3 days a week only due to side effects, but with consistent full viral suppression and minimal NRTI resistance on prior genotype Chronic nausea Overview (07/26/2018): Secondary to antiretroviral therapy Carcinoma in situ of cervix Overview (07/26/2018): 11/26/06 PAP with HSIL/severe dysplasia/CIS. 01/07/07 ECC with multiple dysplastic epithelium. 05/11/07 cone bx with CIS, margins clear, ECC (-). Allergic rhinitis Adult attention deficit disorder COPD (chronic obstructive pulmonary disease) Coronary artery disease Resolved Problems Problem Noted Date Diagnosed Date Resolved Date Patient left after triage 01/08/2025 Lower extremity edema 01/13/20222024 Chronic hepatitis C virus infection 12/14/2019 Overview (07/26/2018): Genotype 3a; no prior treatment Encounters Date Type Department Care Team Description 03/01/[address], [address] [place] [address] Nick Colon MD 02/28/2025 2:00 AM PDT Office Visit [address], [address] [place] [address] Magn[employer]ard Cdt 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) 02/25/[address], [address] [place] [address] Eryn Segura-Jai Aragon MD Documentation only; Needs appointment (ECHO) 02/20/2025 10:00 AM PDT Video Visit [facility] [place] [address] [place] [address] Lopez Andersen MD Cellulitis of left foot (Primary Dx); Human immunodeficiency virus (CMS/HCC); Chronic bronchitis, unspecified chronic bronchitis type (CMS/HCC); Dilated cardiomyopathy (CMS/HCC) 02/07/2025 Telephone [facility] [place] [address] [place] [address] Lopez Andersen MD Appointment Request 02/01/2025 12:00 PM PDT Video Visit [facility] [place] [address] [place] [address] Lopez Andersen MD Cellulitis of left foot (Primary Dx) 01/27/2025 Telephone [facility] [place] [address] [place] [address] Lopez Andersen MD Infection 01/26/2025 Telephone [facility] [place] [address] [place] [address] Lopez Andersen MD Allergies 01/25/2025 Telephone [facility] [place] [address] [place] [address] Lopez Andersen MD Advice 01/24/2025 Telephone [facility] [place] [address] [place] [address] Lopez Andersen MD Referral 01/23/2025 2:00 AM PDT Office Visit [facility] - [address], [address] [place] [address] [employer] Cdt 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) 01/18/2025 1:00 PM PDT Office Visit [facility] [place] [address] [place] [address] Lopez Andersen MD Chronic bronchitis, unspecified chronic bronchitis type (CMS/HCC) (Primary Dx); Allergic rhinitis, unspecified seasonality, unspecified trigger 01/17/2025 Telephone [facility] [place] [address] [place] [address] Dermatology 01/17/2025 Telephone [facility] [place] [address] [place] [address] Lopez Andersen MD Medication follow up 01/13/2025 Telephone [facility] [place] [address] [place] [address] Lopez Andersen MD Request for order(s) (New Provider /Orthopedic Surgery) 01/12/2025 10:10 AM PDT Office Visit [facility] - [address] [phone] Dean Puckett, SMILEY Aftercare following surgery (Primary Dx); Cellulitis of foot 01/12/2025 9:45 AM PDT Ancillary Procedure [facility] - [address] [address] Closed fracture of bone of right foot, initial encounter 01/09/2025 9:20 AM PDT Office Visit [facility] [place] [address] [place] [address] Lopez Andersen MD Lisfranc dislocation, right, sequela (Primary Dx); Adult attention deficit disorder; Actinic skin damage; Nicotine dependence, uncomplicated, unspecified nicotine product type 01/08/2025 10:00 AM PDT Urgent Care Office Visit [facility] [place] [address] [place] [address] Jason Holland MD Patient left after triage (Primary Dx) 01/02/2025 Telephone [facility] [place] [address] [place] [address] Lopez Andersen MD Appointment Request 12/19/2024 2:00 AM PDT Office Visit [facility] - [address], [address] [place] [address] [employer] Cdt 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) from Last 3 Months Immunizations Immunization Administration Dates Next Due Hepatitis A 01/08/2001 Pneumovax-23 2+ Yrs 04/24/2008 Family History Medical History Relation Comments COPD Father Cancer Father Mesothelioma Father Relation Status Comments Father Mother Social History Tobacco Use Types Packs/Day Years Used Date Smoking Tobacco: Former Cigarettes 1 50 0 10/01/1969 - 10/02/2019 Passive Smoke Exposure: Past Smokeless Tobacco: Never Tobacco Cessation:Counseling Given: Not Answered Alcohol Use Standard Drinks/Week Comments Not Currently [...] file Not on file Not on file Last Filed Vital Signs Vital Sign Reading Time Taken Comments Blood Pressure 120/79 01/18/2025 1:05 PM PDT Pulse 79 01/18/2025 1:05 PM PDT Temperature 36.8 C (98.3 F) 01/08/2025 8:46 AM PDT Respiratory Rate 20 01/08/2025 8:46 AM PDT Oxygen Saturation 98% 01/18/2025 1:05 PM PDT Inhaled Oxygen Concentration - - Weight 59 kg (130 lb) 01/08/2025 8:46 AM PDT Height 160 cm (5' 3) 01/12/2023 10:00 AM PDT Body Mass Index 23.03 01/12/2023 10:00 AM PDT Plan of Treatment Health Maintenance Due Date Last Done Comments RSV VACCINE 60+ YEARS OR PRE GNANT (1 - Risk 60-74 years 1-dose series) 2013 ADVANCE DIRECTIVE DISCUSSION 2018 BONE DENSITOMETRY 2018 MAMMOGRAM 06/14/2022 06/14/2021, 02/0 09/2018, 07/12/2018, Additional history exists LIPID SCREENING 07/04/2023 07/04/2022, 08/0 08/2019, 11/16/2019, Additional history exists COLORECTAL CANCER SCREENING DISCUSSION 02/13/2025 02/14/2024, 07/29/2018 LUNG CANCER SCREENING 10/17/2025 10/17/2024 , 09/15/2023, 07/16/2022, Additional history exists HEMOGRAM 12/28/2025 12/28/2024, 12/07, 12/22/2024, Additional history exists POTASSIUM 12/28/2025 12/28/2024, 10/06, 07/13/2024, Additional history exists SODIUM 12/28/2025 12/28/2024, 10/06, 07/13/2024, Additional history exists CREATININE 12/30/2025 12/30/2024, 10/06, 07/13/2024, Additional history exists PNEUMOCOCCAL VACCINE 50+ YEARS Discontinued 04/24/2008 COVID-19 Vaccine Discontinued 11/02/2020 HEPATITIS C SCREENING Discontinued 02/24/2023 , 12/14/2019, 11/16/2019, Additional history exists DTaP,Tdap,or Td Vaccine Discontinued HEPATITIS B SCREENING Discontinued HPV VACCINE (No Doses Required) Completed INFLUENZA VACCINE Discontinued MENINGOCOCCAL ACWY VACCINE Discontinued Syphilis Screening Discontinued ZOSTER VACCINE (Shingrix w/w o Zostavax) Discontinued Procedures Procedure Name Priority Date/Time Associated Diagnosis Comments UT ICM INTERROG DEV EVAL REM UP TO 30 DAYS Routine 02/28/2025 8:58 AM PDT ICD (implantable cardioverter-defibrilla tor) in place UT ICM INTERROG DEV EVAL REM UP TO 30 DAYS Routine 01/24/2025 12:46 PM PDT ICD (implantable cardioverter-defibrilla tor) in place XR FOOT 3 OR MORE VIEWS RIGHT Routine 01/12/2025 9:51 AM PDT Closed fracture of bone of right foot, initial encounter UT ICM INTERROG DEV EVAL REM UP TO 30 DAYS Routine 12/19/2024 9:32 AM PDT ICD (implantable cardioverter-defibrilla tor) in place UT COMPLETE CBC W/AUTO DIFF WBC Routine 10/17/2024 12:24 PM PDT Human immunodeficiency virus (CMS/HCC) UT COMPREHEN METABOLIC PANEL Routine 10/17/2024 12:24 PM PDT Human immunodeficiency virus (CMS/HCC) CT LUNG CANCER SCREENING ANNUAL Routine 10/17/2024 12:18 PM PDT Personal history of nicotine dependence OCCULT BLOOD IMMUNOASSAY Routine 02/14/2024 12:00 PM PDT Encounter for screening for malignant neoplasm of colon UT HEPATITIS C ANTIBODY SCREENING Routine 02/24/2023 2:39 PM PDT Vasculitis (CMS/HCC) UT LIPID PANEL Routine 07/04/2022 10:15 AM PST Coronary artery disease involving klawock coronary artery of klawock heart without angina pectoris MAMMO SCREENING BILAT DIGITAL Routine 06/14/2021 10:54 AM PST Encounter for screening mammogram for malignant neoplasm of breast from Last 3 Months or Most Recently Relevant to Health Maintenance Results * UT ICM INTERROG DEV EVAL REM UP TO 30 DAYS (02/28/2025 8:58 AM PDT) Only the most recent of3 resultswithin the time period is included. 02/28/2025 8:58 AM PDT us Eryn-Jai Segura MD UT CARDIOLOGY/CARDIOVAS CULAR Final Result [facility] IN[facility] [address] [place] [address] * XR FOOT 3 OR MORE VIEWS RIGHT (01/12/2025 9:51 AM PDT) Anatomical Region Laterality Modality Foot SH Diagnostic Im aging (General Use) 01/12/2025 10:2 0 AM PDT Impressions 01/12/2025 10:24 AM PDT IMPRESSION: Postsurgical changes at the Lisfranc fracture-dislocation repair with plate and screw fixation through the bases of the first, second, and third metatarsals spanning the tarsometatarsal joints. There is no evidence of hardware failure. Alignment is anatomic. Age-indeterminate mildly displaced fracture of the base of the fifth metatarsal. Scattered interphalangeal degenerative changes. Osseous mineralization is within normal limits. Mild soft tissue swelling about the foot. Electronically Signed by: Yves Paula MD 01/12/2025 10:24 AM Narrative 01/12/2025 10:24 AM PDT XR FOOT 3 OR MORE VIEWS RIGHT: 01/12/2025 9:45 AM CLINICAL HISTORY: 69 years of age, Female, Multiple right midfoot fractures resulting in Lisfranc fracture-dislocation. COMPARISON: None. TECHNIQUE: XR FOOT 3 OR MORE VIEWS RIGHT. Procedure Note Yves Paula MD - 01/12/2025 XR FOOT 3 OR MORE VIEWS RIGHT: 01/12/2025 9:45 AM CLINICAL HISTORY: 69 years of age, Female, Multiple right midfootfractures resulting in Lisfranc fracture-dislocation. COMPARISON: None. TECHNIQUE: XR FOOT 3 OR MORE VIEWS RIGHT. IMPRESSION: Postsurgical changes at the Lisfranc fracture-dislocation repair withplate and screw fixation through the bases of the first, second, and thirdmetatarsals spanning the tarsometatarsal joints. There is no evidence ofhardware failure. Alignment is anatomic. Age-indeterminate mildlydisplaced fracture of the base of the fifth metatarsal. Scattered interphalangeal degenerative changes. Osseous mineralization is within normal limits. Mild soft tissue swelling about the foot. Electronically Signed by: Yves Paula MD 01/12/2025 10:24 AM Dean Puckett DPM RAD XRAY/GENERAL Final Resul t * (ABNORMAL) COMPREHENSIVE METABOLIC PANEL W GFR (10/17/2024 12:24 PM PDT) Sodium 141 136 - 145 mmol/L 10/17/2024 2:28 PM PDT [facility] [phone] Potassium 4.8 3.5 - 5.1 mmol/L 10/17/2024 2:28 PM PDT [facility] [place] [facility] [phone] Chloride 104 98 - 110 mmol/L 10/17/2024 2:28 PM PDT [facility] [phone] CO2 (Bicarbonate) 30 21 - 32 mmol/L 10/17/2024 2:28 PM PDT [facility] [phone] Glucose 107(H) 70 - 99 mg/dL 10/17/2024 2:28 PM PDT [facility] [phone] Comment: The reference range is applicable only if the blood glucose is obtained in the fasting state. If the glucose is obtained in the non-fasting state, this reference range does NOT apply. Impaired fasting glucose, a form of pre-diabetes, is defined by the [place] [employer] as fasting plasma glucose of 100-125 mg/dL. A fasting glucose of 126 mg/dL or greater is consistent with diabetes. BUN 19 6 - 25 mg/dL 10/17/2024 2:28 PM PDT [facility] [phone] Creatinine 1.11(H) 0.40 - 1.00 mg/dL 10/17/2024 2:28 PM PDT [facility] [phone] Comment:IDMS-traceable metho d Calcium 9.6 8.2 - 10.2 mg/dL 10/17/2024 2:28 PM PDT [facility] [phone] Total Protein 8.0 6.4 - 8.2 g/dL 10/17/2024 2:28 PM PDT [facility] [phone] Albumin 4.0 3.2 - 4.7 g/dL 10/17/2024 2:28 PM PDT [facility] [phone] Total Bilirubin 0.8 <1.1 mg/dL 2:28 PM PDT [facility] [phone] Alkaline Phosphatase 72 26 - 137 U/L 10/17/2024 2:28 PM PDT [facility] [phone] AST 20 0 - 37 U/L 10/17/2024 2:28 PM PDT [facility] [phone] ALT 24 0 - 60 U/L 10/17/2024 2:28 PM PDT [facility] [place] [facility] [phone] eGFR 53(L) >60 See Cmnt 10/17/2024 2:28 PM PDT [facility] [place] [facility] [phone] Comment: Units: mL/min/1.73 m2. Estimated glomerular filtration rate values are calculated using the CKD-EPI Creatinine 2020 equation (non-race based). Serum (Blood) 10/17/2024 12: 24 PM PDT 10/17/2024 12:57 PM PDT Narrative [facility] [place] [facility] - 10/17/2024 2:28 PM PDT Patient not fasting us Lopez Andersen MD LAB CHEMISTRY Final R esult [facility] [place] [facility] [address] [place] [address] [facility] [place] [facility] [phone] [place] [address] * (ABNORMAL) CBC WITH AUTOMATED DIFFERENTIAL (10/17/2024 12:24 PM PDT) White Blood Cell Count 6.1 4.0 - 11.0 K/uL 10/17/2024 1:29 PM PDT [facility] [place] [facility] [phone] Red Blood Cell Count 5.09 3.90 - 5.40 M/uL 10/17/2024 1:29 PM PDT [facility] [place] [facility] [phone] Hemoglobin 16.0(H) 12.0 - 15.5 g/dL 10/17/2024 1:29 PM PDT [facility] [place] [facility] [phone] Hematocrit 46.6 35.0 - 47.0 % 10/17/2024 1:29 PM PDT [facility] [place] [facility] [phone] MCV 92 80 - 100 fL 10/17/2024 1:29 PM PDT [facility] [place] [facility] [phone] MCH 31.4 27.0 - 33.0 pg 10/17/2024 1:29 PM PDT [facility] [place] [facility] [phone] MCHC 34.3 31.0 - 36.0 g/dL 10/17/2024 1:29 PM PDT [facility] [place] [facility] [phone] RDW 13.7 <16.4 % 10/17/2024 1:29 PM PDT [facility] [place] [facility] [phone] Platelet Count 339 150 - 400 K/uL 10/17/2024 1:29 PM PDT [facility] [place] [facility] [phone] Differential Type Automated 10/17/2024 1:29 PM PDT [facility] [place] [facility] [phone] Neutrophil % 44 % 10/17/2024 1:29 PM PDT [facility] [place] [facility] [phone] Lymphocyte % 43 % 10/17/2024 1:29 PM PDT [facility] [place] [facility] [phone] Monocyte % 8 % 10/17/2024 1:29 PM PDT [facility] [place] [facility] [phone] Eosinophil % 3 % 10/17/2024 1:29 PM PDT [facility] [place] [facility] [phone] Basophil % 2 % 10/17/2024 1:29 PM PDT [facility] [place] [facility] [phone] Abs. Neutrophil 2.7 1.5 - 8.0 K/uL 10/17/2024 1:29 PM PDT [facility] [place] [facility] [phone] Abs. Lymphocyte 2.6 0.6 - 3.5 K/uL 10/17/2024 1:29 PM PDT [facility] [place] [facility] [phone] Abs. Monocyte 0.5 0.0 - 0.8 K/uL 10/17/2024 1:29 PM PDT [facility] [place] [facility] [phone] Abs. Eosinophil 0.2 0.0 - 0.5 K/uL 10/17/2024 1:29 PM PDT [facility] [place] [facility] [phone] Abs. Basophil 0.1 0.0 - 0.2 K/uL 10/17/2024 1:29 PM PDT [facility] [place] [facility] [phone] Blood (Blood) 10/17/2024 12: 24 PM PDT 10/17/2024 12:57 PM PDT Narrative [facility] [place] [facility] - 10/17/2024 1:29 PM PDT Patient not fasting us Lopez Andersen MD LAB HEMATOLOGY Final R esult [facility] [place] [facility] [address] [place] [address] [facility] [place] [facility] [phone] [place] [address] * CT LOW DOSE LUNG CANCER SCREENING (10/17/2024 12:18 PM PDT) Anatomical Region Laterality Modality Chest SH Computed Jeff graphy 10/17/2024 12:2 3 PM PDT Impressions 10/17/2024 12:31 PM PDT IMPRESSION: 1. Lung RADS 2, benign. Recommend annual low dose CT scan if the patient continues to meet USPTF guidelines. Electronically Signed by: Fatmata Hill 10/17/2024 12:31 PM Narrative 10/17/2024 12:31 PM PDT EXAMINATION: CT chest without contrast HISTORY: Lung cancer screening. COMPARISON: 09/15/2023, 07/28/2022. TECHNIQUE: 3 mm axial tomographic images were obtained from the lung apices to the bases without intravenous contrast administration. DLP measurement: 89.3 mGy*cm and CTDI measurement(s): 0.08,2.67 mGy. FINDINGS: Lungs and airways: Stable mild apical emphysema. Several stable 2 to 3 mm noncalcified pulmonary nodules in the right lung upper lobe (image #27, 54, and lower lobe 103, series 3). Stable small calcified granuloma in the medial right upper lobe. No new suspicious nodule. No bronchiectasis. Chest wall: Dual-chamber cardiac pacing device in the left anterior chest wall. Lymph nodes: No enlarged lymph nodes. Pleural space: No pleural effusion. Thoracic aorta: Normal caliber. Heart: Normal size, no pericardial effusion. Coronary artery calcifications are present. Visualized intra-abdominal organs: Limited evaluation, possible tiny gallstone. Bones: No suspicious osseous finding. Procedure Note Fatmata Hill MD - 10/17/2024 EXAMINATION: CT chest without contrast HISTORY: Lung cancer screening. COMPARISON: 09/15/2023, 07/28/2022. TECHNIQUE: 3 mm axial tomographic images were obtained from the lungapices to the bases without intravenous contrast administration. DLP measurement: 89.3 mGy*cm and CTDI measurement(s): 0.08,2.67 mGy. FINDINGS: Lungs and airways: Stable mild apical emphysema. Several stable 2 to 3 mmnoncalcified pulmonary nodules in the right lung upper lobe (image #27,54, and lower lobe 103, series 3). Stable small calcified granuloma in themedial right upper lobe. No new suspicious nodule. No bronchiectasis. Chest wall: Dual-chamber cardiac pacing device in the left anterior chestwall. Lymph nodes: No enlarged lymph nodes. Pleural space: No pleural effusion. Thoracic aorta: Normal caliber. Heart: Normal size, no pericardial effusion. Coronary arterycalcifications are present. Visualized intra-abdominal organs: Limited evaluation, possible tinygallstone. Bones: No suspicious osseous finding. IMPRESSION: 1. Lung RADS 2, benign. Recommend annual low dose CT scan if the patientcontinues to meet USPTF guidelines. Electronically Signed by: Fatmata Hill 10/17/2024 12:31 PM Lopez Andersen MD RAD CT Final R esult * (ABNORMAL) OCCULT BLOOD IMMUNOASSAY (02/14/2024 12:00 PM PDT) Occult Blood by Immunoassay Pos(A) Neg 02/23/2024 12:31 AM PDT [facility] [phone] Stool 02/14/2024 12:0 0 PM PDT 02/22/2024 6:02 PM PDT Loepz Andersen MD LAB HEMATOLOGY Final R esult [facility] [address] [place] [address] [facility] [phone] [address] [place] [address] * (ABNORMAL) HEPATITIS C ANTIBODY RFLX HCV RNA PCR (02/24/2023 2:39 PM PDT) Pathologist [facility] Hepatitis C Antibody Reactive(A) Non Reactive 02/25/2023 10:31 AM PDT [facility] [phone] Comment:Antibodies to HCV de tected. HCV RNA IU/mL Not Detected Not Detected IU/mL 02/25/2023 10:31 AM PDT [facility] [phone] HCV RNA log10 Not Detected Not Detected log 10 02/25/2023 10:31 AM PDT [facility] [phone] Comment: The presence of Reactive Hepatitis C virus (HCV) Antibody and Not Detected HCV PCR may be due to previous or inactive HCV infections or false positive antibody results. Clinical correlation is suggested. An interpretation of Not Detected does not rule out the presence of PCR inhibitors or hepatitis C virus RNA concentrations below the limit of detection of the assay. Careful interpretation of any single viral load determination may be warranted. The quantitative range of this assay is 15-100,000,000 IU/mL (1.18-8.00 Log IU/mL). This test was performed using quantitative amplification (PCR) method. The test is not intended for use as a screening test for the presence of virus in blood or blood products. Serum (Blood) 02/24/2023 2:3 9 PM PDT 02/24/2023 2:56 PM PDT us Magnolia Garcia MD LAB IMMUNOSEROLOGY Mis arroyo Result [facility] [address] [place], [place] [id number] [facility] [phone] [address] [place] [address] * (ABNORMAL) LIPID PROFILE (07/04/2022 10:15 AM PST) [facility] Total cholesterol 178 <200 mg/dL 023 11:51 AM PST [facility] [phone] Comment: Desirable: <200 mg/dL Borderline: 200 to 239 mg/dL High: >240 mg/dL Triglyceride 165(H) <150 mg/dL 07/04/2022 11:51 AM [facility] [phone] Comment: Normal: <150 mg/dL Borderline High: 150 to 199 mg/dL High: 200 to 499 mg/dL Very High: > or = 500 mg/dL HDL cholesterol 56 >40 mg/dL 11:51 AM [facility] [phone] Comment: High: > or = 60 mg/dL Low: <40 mg/dL LDL Calculated 89 <130 mg/dL 07/04/2022 11:51 AM [facility] [phone] Comment: Optimal: <100 mg/dL Near Optimal: 100 to 129 mg/dL Borderline High: 130 to 159 mg/dL High: 160 to 189 mg/dL Very High: > or = 190 mg/dL Cholesterol to HDL Ratio 3.2 <5.0 07/04/2022 11:51 AM [facility] [phone] Serum (Blood) 07/04/2022 10: 15 AM PST 07/04/2022 10:23 AM [facility] Narrative [facility] [place] [facility] - 07/04/2022 11:51 AM [facility] Patient fasting Lopez Andersen MD LAB CHEMISTRY Final R esult [facility] [place] [facility] [address] [place] [address] [facility] [place] [facility] [phone] [place] [address] * MAMMO SCREENING BILATERAL DIGITAL (06/14/2021 10:54 AM PST) Anatomical Region Laterality Modality Breast Bilateral SH Mammography 06/14/2021 4:48 PM PST Addenda Addendum by Tuyet Ely MD on 07/08/2021 4:59 PM PST Addendum: Prior films dating back to 07/09/2017 are now available for comparison. The right breast is unchanged in the interim. The focal asymmetry over the left slightly lower breast 7 to 8 cm from the nipple is seen on 2 views on the current exam. CAD utilized. IMPRESSION: 1. Focal asymmetry left slightly lower breast 7 to 8 cm from the nipple seen on 2 views. Additional views advised. Mediolateral oblique view of the left breast should be repeated due to suboptimal positioning. Patient will be contacted to schedule additional views. BI-RADS 0. MQSA/ACR Lexicons: BREAST DENSITY: a. Almost entirely fatty OVERALL ASSESSMENT: Incomplete - Need Additional Imaging Evaluation and/or Prior Mammograms for Comparison RECOMMENDATION: P Recall for additional imaging Electronically Signed by: Tuyet Ely MD 07/08/2021 4:59 PM Impressions 06/17/2021 1:07 PM PST Impression: Comparison with prior films advised. These films will be requested. When they become available, an addendum will be rendered. MQSA/ACR Lexicons: BREAST DENSITY: a. Almost entirely fatty OVERALL ASSESSMENT: Incomplete - Need Additional Imaging Evaluation and/or Prior Mammograms for Comparison RECOMMENDATION: O Prior films for comparison Electronically Signed by: Tuyet Ely MD 06/17/2021 1:07 PM Narrative 06/17/2021 1:07 PM PST History: Screening. . Maty Model lifetime risk of invasive breast cancer is 6.4%, estimation by patient provided data. The Maty Model is unable to estimate lifetime risk of invasive breast cancer in those patients less than 35-year-old and in patients with history of breast cancer or LCIS. Please refer to [facility] guidelines to determine high risk patient and appropriate clinical/imaging followup. Comparison: None at this site. Findings: Bilateral digital craniocaudal and medial-lateral oblique views of the breasts reveal predominantly fatty replaced fibroglandular tissue. No dominant mass lesion or suspicious microcalcifications are seen. There is a 2 view asymmetry over the left slightly lower breast, located 7 to 8 cm from the nipple. Benign-appearing breast calcifications seen. The mediolateral oblique view of the left breast is suboptimal in positioning. CAD utilized. Procedure Note Tuyet Ely MD - 06/17/2021 History: Screening. . Maty Model lifetime risk of invasive breast canceris 6.4%, estimation by patient provided data. The Maty Model is unable toestimate lifetime risk of invasive breast cancer in those patients lessthan 35-year-old and in patients with history of breast cancer or LCIS.Please refer to [facility] guidelines to determine highrisk patient and appropriate clinical/imaging followup. Comparison: None at this site. Findings: Bilateral digital craniocaudal and medial-lateral oblique viewsof the breasts reveal predominantly fatty replaced fibroglandular tissue.No dominant mass lesion or suspicious microcalcifications are seen. Thereis a 2 view asymmetry over the left slightly lower breast, located 7 to 8cm from the nipple. Benign- appearing breast calcifications seen. Themediolateral oblique view of the left breast is suboptimal in positioning.CAD utilized. Impression: Comparison with prior films advised. These films will berequested. When they become available, an addendum will be rendered. MQSA/ACR Lexicons: BREAST DENSITY: a. Almost entirely fatty OVERALL ASSESSMENT: Incomplete - Need Additional Imaging Evaluationand/or Prior Mammograms for Comparison RECOMMENDATION: O Prior films for comparison Electronically Signed by: Tuyet Ely MD 06/17/2021 1:07 PM Lopez Andersen MD RAD MAMMOGRAPHY Edited Result - Final from Last 3 Months or Most Recently Relevant to Health Maintenance Insurance [facility] MEDICARE MEDICARE MEDICARE MEDICARE [facility] Address: [address] [address] [place] [address] [place] [address] [facility] [employer] [place] Address: [address] [address] [place] [address] MEDICARE SUTTER MEDICARE DIRECT DCE Care Teams Traffic Officer Relationship Specialty [place] [address] [address] [facility] [place] [phone] PCP - General Internal Medicine 07/16/18 Pcp, Giles Deng [facility] [address] [place] [address] PCP - Other Care Provider 06/08/22 Louis Burleson MD [address] [place] [address] Psychiatry 07/30/18
--- OUTSIDE RECORDS SUMMARY | 2025-03-13 14:36 | XMS_ITS | Encounter Summary ---
Author Organization [facility] Address [address] [place] [address] Care Team Providers Care Light Coil Winder Name Role Phone Lopez Andersen MD Primary Care Provider Reason for Visit * Reason Comments Medication Refill Encounter Details Date Type Department Care Team (Late st Contact Info) Description 01/21/2017 Refill Positive Care [address] [address] [place] [address], Internal Medicine [place], [place] [id number] Attention deficit hyperactivity disorder (ADHD), unspecified ADHD type [F90.9] Social History Tobacco Use Types Packs/Day Years Used Date Smoking Tobacco: Every Day Cigarettes 0.5 45 Smokeless Tobacco: Never Alcohol Use Standard Drinks/Week Comments No 0 (1 standard drink = 0.6 oz [...] Infection Onset Date Last Indicated Resolved Time Influenza 06/11/2017 06/11/2017 06/25/2017 9:30 AM PST PUI1 COVID-19 (2019-nCoV) 08/06/2020 08/06/2020 8:37 PM PST documented as of this encounter Care Teams Light Coil Winder Relationship Specialty [place] [address] [place] [address] PCP - General Internal Medicine 08/29/14 documented as of this encounter
--- OUTSIDE RECORDS SUMMARY | 2025-03-13 14:36 | XMS_ITS | Encounter Summary ---
Author Organization [facility] Address [address] [place] [address] Care Team Providers Care Pleating Supervisor Name Role Phone Lopez Andersen MD Primary Care Provider Reason for Visit * Reason Comments Medication Refill Encounter Details Date Type Department Care Team (Late st Contact Info) Description 05/11/2017 Refill POSITIVE CARE - [address] Floor [place], [place] [phone] Sammy Pelletier MD [address] [facility] [address] [place], [place] [phone] Attention deficit hyperactivity disorder (ADHD), unspecified ADHD [...] documented as of this encounter Care Teams Pleating Supervisor Relationship Specialty [place] [address] [place] [address] PCP - General Internal Medicine 08/29/14 documented as of this encounter
--- OUTSIDE RECORDS SUMMARY | 2025-03-13 14:36 | XMS_ITS | Encounter Summary ---
Author Organization [facility] Address [address] [address] Care Team Providers Care Life Enrichment Manager Name Role Phone Lopez Andersen MD Primary Care Provider Reason for Visit * Reason Comments Medication Refill Encounter Details Date Type Department Care Team (Late st Contact Info) Description 10/13/2017 Refill Positive Care [address] [address] Louis Burleson MD [address] [place], [place] [phone] Attention deficit hyperactivity disorder (ADHD), unspecified ADHD [...] documented as of this encounter Care Teams Life Enrichment Manager Relationship Specialty [place] [address] [place] [address] [place] [address] PCP - General Internal Medicine 08/29/14 documented as of this encounter
--- OUTSIDE RECORDS SUMMARY | 2025-03-13 14:36 | XMS_ITS | Clinical Summary ---
Author Organization [facility] Address [address] [place] [address] Care Team Providers Care Pecan Picker Name Role Phone Lopez Andersen MD Primary Care Provider Source Comments NOTE: The information displayed is extracted from the complete medical record and may not identify all current or past patient conditions.[facility] Allergies Active Allergy Reactions Criticality Noted Date Comments Anesthetics - Amide Type - S elect Amino Amides 08/29/2003 Anesthetics - Belkis Type- Parabens 0 08/29/2003 Aspirin 08/29/2003 Codeine 08/29/2003 Erythromycin Base 08/29/2003 Other 11/02/2010 NAROCAINE Penicillins 08/29/2003 Procainamide 08/29/2003 Sulfa (Sulfonamide Antibiotics) 08/07 Tetracycline 08/29/2003 Medications acyclovir (ZOVIRAX) 5 % ointmentIndicat ions:Recurrent herpes labialis Apply to affected areas every 3 (three) hours. 15 g 3 02/28/20 14 Active methylphenidate (RITALIN) 10 MG tabletIndicatio ns:Attention deficit disorder of adult Take 1 tablet (10 mg total) by mouth 2 (two) times daily. 60 tablet 0 03/02/20 14 Active methylphenidate (RITALIN) 20 MG tabletIndicatio ns:Attention deficit disorder of adult Take 1 tablet (20 mg total) by mouth 2 (two) times daily. 60 tablet 0 03/02/20 14 Active nicotine (NICODERM CQ) 21 mg/24 hr patch Apply 1 patch onto the clean, dry area of skin every 24 hours. 30 patch 3 3 11:13 AM PDT 09/01/19 23 Active predniSONE (DELTASONE) 10 MG tablet Take 5 tablets by mouth [address] scan, then take 5 tablets [address] scan then take 5 tablets [address] scan. 15 tablet 3 3:27 PM PDT 09/13/19 23 Active mupirocin (BACTROBAN) 2 % ointment Apply to affected areas 3 (three) times daily. 22 g 1 4 2:24 PM PST 03/16/20 23 Active nicotine (NICODERM CQ) 21 mg/24 hr patch Apply 1 patch onto a clean dry area of the skin every 24 hours. 28 each 4 4 8:40 AM PDT 06/25/19 24 Active mometasone (NASONEX) 50 mcg/actuation nasal spray Inhale 2 sprays into each nostril daily. 17 g 5 4 11:55 AM PDT 07/10/19 24 Active azithromycin (ZITHROMAX) 250 MG tablet Take 2 tablets orally on day 1, then take 1 tablet orally once daily on days 2 through 5. 6 tablet 08/03/19 24 Active silver sulfADIAZINE (SILVADENE) 1 % cream Apply 1 Application to affected areas daily. 25 g 4 12:28 PM PDT 09/04/19 24 Active permethrin (ELIMITE) 5 % cream one Application to affected area(s) once for 1 dose 60 g 1 4 3:42 PM PDT 10/12/19 24 Active nicotine, polacrilex, [address] 1 lozenge between cheek and gum every 2 (two) hours as needed. 81 each 3 5 5:16 PM PDT 10/19/19 24 Active nicotine polacrilex (COMMIT) [address] 1 lozenge between the cheek and gum every 2 hours as needed 72 lozenge 1 4 1:24 PM PDT 10/22/19 24 Active aspirin 81 MG chewable tablet Chew 0.5 tablets by mouth daily. 15 tablet 14 5 12:15 PM PDT 11/09/19 24 Active dextroamphetami ne-amphetamine 30 mg Tab Take one Tablet by mouth twice daily 60 tablet 4 3:34 PM PST 03/21/20 24 Active albuterol sulfate (PROVENTIL HFA;VENTOLIN HFA) 90 mcg/actuation HFA inhaler Inhale two Puffs by mouth every 4 to 6 hours as needed for Wheezing/Short ness of Breath or Cough 8.5 g 11 5 5:16 PM PDT 05/13/20 24 Active beclomethasone dipropionate (QNASL) 80 mcg/actuation nasal spray Administer 2 sprays by Each Nostril daily. 10.6 g 11 5 10:11 AM PDT 05/13/20 24 Active prednisoLONE acetate (PRED FORTE) 1 % ophthalmic suspension Shake well before using. Apply 1 drop to right eye four times a day for 7 days, then stop. 10 mL 4 4:30 PM PST 05/17/20 24 Active dextroamphetami ne-amphetamine 30 mg Tab Take 1 tablet by mouth 2 (two) times daily. 60 tablet 5 2:23 PM PST 05/20/20 24 Active dextroamphetami ne-amphetamine 30 mg Tab Take one tablet by mouth twice daily. 60 tablet 5 1:21 PM PDT 07/13/19 25 Active hydroCHLOROthia zide (MICROZIDE) 12.5 mg capsule Take 1 capsule by mouth 2 (two) times daily. 180 capsule 3 5 10:11 AM PDT 10/08/19 25 Active albuterol sulfate (PROVENTIL HFA;VENTOLIN HFA) 90 mcg/actuation HFA inhaler Inhale two Puffs by mouth every 4 to 6 hours as needed for Wheezing/Short ness of Breath or Cough 6.7 g 11 5 3:31 PM PDT 10/11/19 25 Active doravirine (PIFELTRO) 100 mg tablet Take one Tablet by mouth daily 30 tablet 11 5 10:11 AM PDT 10/11/19 25 Active lamiVUDine (EPIVIR) 300 MG tablet Take 1 tablet by mouth daily. 30 tablet 11 5 11:17 AM PDT 10/11/19 25 Active nicotine polacrilex (COMMIT) [address] one Lozenge between the cheek and gum every 2 hours as needed 72 lozenge 3 08/12/202 5 3:55 PM PDT 10/11/19 25 Active fluconazole (DIFLUCAN) 100 MG tablet Take 1 tablet by mouth daily. 7 tablet 5 3:31 PM PDT 10/11/19 25 Active fluticasone furoate (ARNUITY ELLIPTA) 200 mcg/actuation blister powder Inhale 1 Inhalation by mouth daily. 30 each 5 5 3:55 PM PDT 10/20/19 25 Active ADDERALL XR 30 mg 24 hr capsule Take one capsule by mouth twice daily 60 capsule 5 2:09 PM PDT 12/06/19 25 Active cephALEXin (KEFLEX) 500 MG capsule Take 1 capsule by mouth every 6 (six) hours for cellulitis 40 capsule 5 3:45 PM PDT 01/09/20 25 Active HYDROcodone-daxa taminophen (NORCO) 5-325 mg Take 1 tablet by mouth at bedtime as needed. 15 tablet 5 3:45 PM PDT 01/10/20 25 Active nicotine polacrilex (COMMIT) [address] one Lozenge between the cheek and gum every 2 hours as needed 72 lozenge 3 01/10/20 25 Active cephALEXin (KEFLEX) 500 MG capsule Take 1 capsule by mouth 4 (four) times daily. 56 capsule 01/14/20 25 Active umeclidinium-vi lanteroL 62.5-25 mcg/actuation DsDv Take 1 Inhalation by mouth daily. 60 each 5 5 11:22 AM PDT 01/19/20 25 Active nicotine (NICODERM CQ) 21 mg/24 hr patch Apply 1 patch onto a clean dry area of the skin every 24 hours 28 patch 3 5 11:50 AM PDT 01/28/20 25 Active clindamycin (CLEOCIN) 300 MG capsule Take 1 capsule every 6 hours by oral route. 28 capsule 5 3:19 PM PDT 01/31/20 25 Active ADDERALL 30 mg Tab Take 1 tablet (30 mg) by mouth 2 times a day 60 tablet 5 12:47 PM PDT 02/09/20 25 Active methylphenidate HCl (RITALIN) 10 MG tablet Take 1 tablet by mouth 2 (two) times daily. 60 tablet 5 12:47 PM PDT 02/09/20 25 Active methylphenidate HCl (RITALIN) 20 MG tablet Take 1 tablet by mouth 2 (two) times daily. 60 tablet 5 12:47 PM PDT 02/09/20 25 Active mometasone (NASONEX) 50 mcg/actuation nasal spray Inhale 2 sprays into each nostril daily. 17 g 03/07/20 25 Active aspirin 81 MG chewable tablet Chew 0.5 tablets by mouth daily. 15 tablet 14 03/08/20 25 Active budesonide-glyc opyr-formoterol (BREZTRI AEROSPHERE) 160-9-4.8 mcg/actuation HFAA Inhale 2 puffs by mouth 2 (two) times daily. Rinse mouth after each use 10.7 g 11 5 8:36 PM PST 05/13/20 24 2024 Discontinued mometasone (NASONEX) 50 mcg/actuation nasal spray Administer two Sprays to each nostril daily 17 g 3 5 11:42 AM PDT 10/08/19 25 2024 Discontinued(D uplicate Medication) budesonide (PULMICORT FLEXHALER) 180 mcg/actuation inhaler Inhale 2 Inhalations by mouth 2 (two) times daily. 1 each 5 01/18/20 25 2024 Discontinued(C ost of medication) Active Problems Patient Care Coordination No te Formatting of this note migh t be different from the original. Patient has transferred care to [place]. She is seeing Dr Lopez Andersen at [facility]. Please see Care Everywhere for notes/labs. 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 LEEP 12/18/02= negative. HSIL pap 11/26/06-->negative cervical biopsy, +ECC 01/12-->cone biopsy 05/11/07 (squamous carcinoma in situ). Last pap 01/13/12 negative Recurrent herpes labialis 01/02/2014 Conjunctivitis 01/02/2014 Allergic rhinitis 11/03/2013 Osteoarthritis 07/14/2013 Health care maintenance 07/07/2013 Hepatitis C 05/31/2013 Major depressive disorder, recurrent episode Overview (10/08/2015): IMO Update Attention deficit disorder of adult 02/17/2013 GERD (gastroesophageal reflux disease) 3 HIV disease 07/10/2008 Carpal tunnel syndrome Resolved Problems Problem Noted Date Diagnosed Date Resolved Date Amphetamine and psychostimulant dependence 05/13/2011 02/14/2013 Overview (10/08/2015): IMO Update Cervicalgia 07/11/2008 02/14/2013 Immunizations Immunization Administration Dates Next Due [employer] ([employer]) SARS-COV-2 (CO VID-19) vaccine, vector non-replicating, recombinant spike protein-Ad26, preservative free, 0.5 mL 11/02/2020 Social History Tobacco Use Types Packs/Day Years Used Date Smoking Tobacco: Former Smokeless Tobacco: Former Alcohol Use Standard Drinks/Week Comments No 0 (1 standard drink = 0.6 oz pur e alcohol) Care Management Transportation Needs Answer Date Recorded What is/are your RELIABLE me ans of transporation to/from your healthcare and/or social support appointments? Not on file Do you need support and reso urces for transportation to your healthcare and/or social support appointments? 3 Care Management Financial Resource Strain Answer Date Recorded Financial Source(s) of income? 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 Not on file 08/19/2023 Do you worry that your food would run out before you have money to buy more? Not on file 08/19/2023 Do you have difficulty affording fruits and vegetables? Not on file 08/06 Do you need support and reso urces for transportation to your healthcare and/or social support appointments? 3 Are you experiencing any other financial stresso rs? Not on file 08/19/2023 Can you afford the medicatio n(s) your doctor(s) have prescribed? Not on file 08/19/2023 Inpatient Housing Answer Date Recorded In the last 12 months, was t here a time when you did not have a steady place to sleep or slept in a alf (including now)? Not on file Able to assess housing status? Yes 1 Inpatient Utilities Answer Date Recorde d In the past 12 months has th e [employer], gas, oil, or water [employer] threatened to shut off services in your home? Not on file 03/18/2023 Able to assess housing status? Yes 1 Comments No Sex and Gender Information Value Date Recorded Sex Assigned at Not on file Legal Sex Female 11:06 PM PDT Gender Identity Not on file Sexual Orientation Not on file Last Filed Vital Signs Vital Sign Reading Time Taken Comments Blood Pressure 128/80 03/18/2023 6:45 PM PDT Pulse 67 03/18/2023 6:45 PM PDT Temperature 36 C (96.8 F) 03/18/2023 6:45 PM PDT Respiratory Rate 18 03/18/2023 6:45 PM PDT Oxygen Saturation 96% 03/18/2023 6:45 PM PDT Inhaled Oxygen Concentration - - Weight 71 kg (156 lb 9.6 oz) 03/18/2023 6:49 PM PDT Height 160 cm (5' 3) 03/18/2023 6:49 PM PDT Body Mass Index 27.74 03/18/2023 6:49 PM PDT Plan of Treatment Health Maintenance Due Date Last Done Comments Colon cancer screening chris arroyo FIT/FOBT 1955 DTaP/ Tdap/Td Vaccines (1 - Tdap) 09/12/1971 Quantiferon Screening 09/12/1971 Staying Healthy Assessment (SHA) 09/12/1971 Zoster Vaccine (1 of 2) 1972 Pneumococcal Immunizations 5 0+ (2 of 2 - PCV) 04/24/2009 04/24/2008 RSV Vaccine (1 - Risk 60-74 years 1-dose series) 2013 Mammogram/ Screening 06/14/2023 06/14/2021 Lipid Panel 11/10/2024 11/11/2019, 09/2015, 01/17/2015, Additional history exists COVID-19 Vaccine (2 - 2024-2 6 season) 2025 11/02/2020 Influenza Vaccine (#1) 2025 Procedures Procedure Name Priority Date/Time Associated Diagnosis Comments LIPID PANEL Routine 06/11/2015 2:46 PM PST HIV disease from Last 3 Months or Most Recently Relevant to Health Maintenance Results * (ABNORMAL) Lipid panel (06/11/2015 2:46 PM PST) Cholesterol 138(L) 173 - 199 mg/dL 06/11/2015 6:34 PM [facility] Triglyceride 79 0 - 150 mg/dL 06/11/2015 6:34 PM [facility] HDL 63 >39 mg/dL 06/11/2015 6:34 PM [facility] LDL, calculated 59(L) 60 - 129 mg/dL 06/11/2015 6:34 PM [facility] Blood 06/11/2015 2:46 PM PST 06/11/2015 5:19 PM [facility] us Louis Burleson MD LAB BLOOD ORDERABLES Final Result [facility] [address] [place], [place] [phone] from Last 3 Months or Most Recently Relevant to Health Maintenance Advance Directives * Full Code (Latest Code Status on File) Date Activated Date Inactivated Comments 03/18/2023 4:15 PM 03/18/2023 11:36 PM Care Teams Pecan Picker Relationship Specialty [place] [address] [place] [facility] [place], [place] [id number] PCP - General 10/02/20
--- OUTSIDE RECORDS SUMMARY | 2025-03-13 14:36 | XMS_ITS | Encounter Summary ---
Author Organization [facility] Address [address] [place] [address] Care Team Providers Care Precision Aircraft Structure Assembler Name Role Phone Lopez Andersen MD Primary Care Provider Reason for Visit * Reason Comments Medication Refill Encounter Details Date Type Department Care Team (Late st Contact Info) Description 01/23/2017 Refill Positive Care [address] [address] [place] [address] Internal Medicine [place], [place] [id number] Attention deficit hyperactivity disorder (ADHD), unspecified ADHD [...] encounter Miscellaneous Notes * Telephone Encounter - Chrystal Szymanski PA - 01/23/2017 4:07 PM PDT Cures check done Future fill as requested documented in this encounter Plan of Treatment Not on file documented as of this encounter Visit Diagnoses Diagnosis Attention deficit hyperactivity disorder (ADHD), unspecified ADHD type documented in this encounter Additional Health Concerns Infection Onset Date Last Indicated Resolved Time Influenza 06/11/2017 06/11/2017 06/25/2017 9:30 AM PST PUI1 COVID-19 (2019-nCoV) 08/06/2020 08/06/2020 8:37 PM PST documented as of this encounter Care Teams Precision Aircraft Structure Assembler Relationship Specialty [place] [address] [place] [address] PCP - General Internal Medicine 08/29/14 documented as of this encounter
--- OUTSIDE RECORDS SUMMARY | 2025-03-13 14:36 | XMS_ITS | Encounter Summary ---
Author Organization [facility] and [facility] Address [address] [place] [address] Care Team Providers Care Health Center Manager Name Role Phone Lopez Andersen MD Primary Care Provider Reason for Visit * Reason Comments Medication Refill Encounter Details Date Type Department Care Team (Late st Contact Info) Description 12/13/2018 Refill POSITIVE CARE - [address] [place], [place] [id number] Sammy Pelletier MD [address] [facility] [address] [place] [address] Attention deficit hyperactivity disorder (ADHD), unspecified ADHD [...] * Telephone Encounter - Linda Kang - 12/13/2018 11:12 AM PDT Refill request Patient is shahida mahmood at [facility] Say: w/ bebeto Name from pharmacy: ADDERALL 30MG TABS Will file in chart as: Amphetamine-Dextroamphetamine (ADDERALL) 30 mg TABS Sig: TAKE 1 TABLET BY MOUTH TWICE DAILY Disp: 60 Tab (Pharmacy requested: 60 Each) ? Refills: 0 Start: 12/13/2018 Class: E-Prescribe For: Attention deficit hyperactivity disorder (ADHD), unspecified ADHD type Requested on: 08/27/2018 Last ordered: 2 months ago by Sammy Pelletier MD Last refill: 10/16/2018 documented in this encounter Plan of Treatment Not on file documented as of this encounter Visit Diagnoses Diagnosis Attention deficit hyperactivity disorder (ADHD), unspecified ADHD type documented in this encounter Additional Health Concerns Infection Onset Date Last Indicated Resolved Time PUI1 COVID-19 (2019-nCoV) 08/06/2020 08/06/2020 8:37 PM PST documented as of this encounter Care Teams Health Center Manager Relationship Specialty [place] [address] [place] [address] PCP - General Internal Medicine 08/29/14 documented as of this encounter
--- OUTSIDE RECORDS SUMMARY | 2025-03-13 14:36 | XMS_ITS ---
Author Organization [facility] Address [address] [place] [address] Care Team Providers Care Manager Loss Prevention Name Role Phone Lopez Andersen MD Primary Care Provider Active Problems Patient Care Coordination No te Formatting of this note migh t be different from the original. Patient has transferred care to [place]. She is seeing Dr Lopez Andersen at [facility] Care clinic. Please see Care Everywhere for [...] 3 HIV disease 07/10/2008 Carpal tunnel syndrome Current Treatment and Therapy Plans No current plan information found. Past Treatment and Therapy Plans No past plan information found. Lifetime Dose Tracking * Chemical Lifetime Dose Automatic Entry Manual Entr y DLP 810.21 mGy-cm 810.21 mGy-cm 0 mGy-cm CTDIvolMAX 58.43 mGy 58.43 mGy 0 mGy Resolved Problems Problem Noted Date Diagnosed Date Resolved Date Amphetamine and psychostimulant dependence 05/13/2011 02/14/2013 Overview (10/08/2015): IMO Update Cervicalgia 07/11/2008 02/14/2013
--- OUTSIDE RECORDS SUMMARY | 2025-03-13 14:36 | XMS_ITS | Encounter Summary ---
Author Organization [facility] Address [address] [facility] [place] [address] Care Team Providers Care Social Staff Worker Name Role Phone Lopez Andersen MD Primary Care Provider Pcp, Giles Martinez Unavailable Unavailable Louis Burleson MD Unavailable [phone] Reason for Visit * Reason Onset Date Comments Referral 01/24/2025 Encounter Details Date Type Department Care Team (Late st Contact Info) Description 01/24/2025 Telephone [facility] [place] [address] [place] [address] [place] [address] [place] [address] Referral Social History Tobacco Use Types Packs/Day Years Used Date Smoking Tobacco: Former Cigarettes 1 50 0 10/01/1969 - 10/02/2019 Passive Smoke Exposure: Past Smokeless Tobacco: Never Alcohol Use Standard Drinks/Week [...] encounter Miscellaneous Notes * Telephone Encounter - Tanya Landry - 01/24/2025 4:46 PM PDT Holding encounter for pcp decision * Telephone Encounter - Pippa Quintero NP - 01/24/2025 11:15 AM PDT This referral should be coming from the provider who did her surgery, please ask her to follow-up w/their office. For any other concerns, please route back to PCP, thanks. * Telephone Encounter - Aisha Ambrose MA - 01/24/2025 11:05 AM PDT Last visit to Internal Medicine: Date: 01/18/2025 Provider: LOPEZ ANDERSEN Next visit to Internal Medicine: Date: 02/20/2025 Provider: LOPEZ ANDERSEN Note not yet signed. * Telephone Encounter - Milind Mathis - 01/24/2025 10:53 AM PDT Person calling is: Self Is this for a new or existing referral? New Which specialty is being requested?: Wound clinic Is there a specific provider that is being requested? No What condition or symptoms are you calling about (include location/body part, etc.)? Patient had surgery on her right foot, unhealed wound. Patient stated she was advised by her Orthopedic provider to be seen in the wound clinic but she hasn't heard anything from the clinic so she would like to request the referral from PCP. Patient is requesting to be seen jamar and would also like to be referredclose to her home. Routed a priority per request. Are you having any pain? Patient stated she is always in pain and she is in a boot with stiches. How long have you been experiencing the condition or symptoms? 1 months Have you been seen by PCP for the condition or symptoms? Yes - Lopez Andersen MD When: NA/NA/NA Last/future visit with provider: Last visit to Internal Medicine: Date: 01/18/2025 Provider: LOPEZ ANDERSEN Next visit to Internal Medicine: Date: 02/20/2025 Provider: LOPEZ ANDERSEN Last visit to Family Medicine: Date: 12/06/2019 Provider: CHI VIZCAINO No future visit currently scheduled to Family Medicine. No visit notes available for last Pediatrics visit. No future visit currently scheduled to Pediatrics. Have you been seen by a specialist for this condition before? No Any change to patient's insurance? No - Payor: MEDICARE / Plan: MEDICARE A AND B / Product Type: MEDICARE TRADITIONAL / Would you prefer to receive a response through MHO or phone? Phone Cell: Mobile phone #: [phone] - Ok to leave confidential, detailed message documented in this encounter Plan of Treatment Not on file documented as of this encounter Visit Diagnoses Not on filedocumented in this encounter Care Teams Social Staff Worker Relationship Specialty [place] [address] [place] [id number] PCP - General Internal Medicine 07/16/18 Pcp, Giles Rodgers [facility] [address] [place] [address] PCP - Other Care Provider 06/08/22 Louis Burleson MD [address] [place] [address] Psychiatry 07/30/18 documented as of this encounter
--- OUTSIDE RECORDS SUMMARY | 2025-03-13 14:36 | XMS_ITS | Referral Summary ---
Author Organization [facility] Address [address] [place] [address] Care Team Providers Care Application Design Engineer Name Role Phone Lopez Andersen MD Primary Care Provider Source Comments NOTE: The information displayed is extracted from the complete medical record and may not identify all current or past patient conditions.[facility] Allergies Active Allergy Reactions Criticality Noted [...] the original. Patient has transferred care to [place]. She is seeing Dr Lopez Andersen at [facility] Care clinic. Please see Care Everywhere [...] 02/14/2013 Immunizations Immunization Administration Dates Next Due SoNetJob (J&J) SARS-COV-2 ([place] VID-19) vaccine, vector non-replicating, [...] 08/19/2023 Food Resources: Not on file 08/19/2023 SALES PROMOTION COORDINATOR Assessmentl: Abuse/Domestic Violence Not on file 08/19/2023 [...] place to sleep or slept in a long-term (including now)? Not on file Able to assess housing status? Yes 1 Inpatient Utilities Answer Date Recorde d In the past 12 months has th e Soundtracker, gas, oil, or water [employer] threatened to shut off services in your [...] 03/18/2023 6:49 PM PDT Plan of Treatment Not on file Procedures Procedure Name Priority Date/Time Associated Diagnosis Comments LIPID PANEL Routine 06/11/2015 2:46 PM PST HIV disease from Last 3 Months or Most Recently Relevant to Health Maintenance Results * (ABNORMAL) Lipid panel (06/11/2015 2:46 PM PST) Cholesterol 138(L) 173 - 199 mg/dL 06/11/2015 6:34 PM PST [facility] Triglyceride 79 0 - 150 mg/dL 06/11/2015 6:34 PM PST [facility] HDL 63 >39 mg/dL 06/11/2015 6:34 PM PST [facility] LDL, calculated 59(L) 60 - 129 mg/dL 06/11/2015 6:34 PM [facility] Blood 06/11/2015 2:46 PM PST 06/11/2015 5:19 PM [facility] us Louis Burleson MD LAB BLOOD ORDERABLES Final Result [facility] [address] [place], [place] [id number] from Last 3 Months or Most Recently Relevant to Health Maintenance Advance Directives * Full Code (Latest Code Status on File) Date Activated Date Inactivated Comments 03/18/2023 4:15 PM 03/18/2023 11:36 PM Care Teams Application Design Engineer Relationship Specialty [place] [address] [place] [phone] PCP - General 10/02/20
--- OUTSIDE RECORDS SUMMARY | 2025-03-13 14:36 | XMS_ITS | Encounter Summary ---
Author Organization [facility] Address [address] [place] [address] Care Team Providers Care Self Sealing Fuel Tank Builder Name Role Phone Lopez Andersen MD Primary Care Provider Encounter Details Date Type Department Care Team (Late st Contact Info) Description 07/12/2020 Abstract Cardiovascular Med [address], Heart Clinic [address] [place] [address] Pcp, No Social History Tobacco Use Types Packs/Day Years [...] documented as of this encounter Care Teams Self Sealing Fuel Tank Builder Relationship Specialty [place] [address] [place] [address] PCP - General Internal Medicine 08/29/14 documented as of this encounter
--- OUTSIDE RECORDS SUMMARY | 2025-03-13 14:36 | XMS_ITS | Clinical Summary ---
Author Organization [facility] Address [address] [place] [address] Care Team Providers Care Poultry Farm Laborer Name Role Phone Lopez Andersen MD Primary Care Provider [phone] Allergies Active Allergy Reactions Criticality Noted Date Comments Aminobenzoate Sodium 03/31/2019 Anesthetics - Amide Type - Select Amino Amides 03/31/2019 Anesthetics - Belkis Type- Parabens 03/31/2019 Atazanavir 03/31/2019 Codeine 03/31/2019 Iodinated Contrast Media Shortness Of Breath High 11/10/2019 Pt had one contrast reaction when she had one CT test done few years ago when she had appendectomy at [facility] in [place]. She said that she can not breath. Diazepam 03/31/2019 Erythromycin 03/31/2019 Fluticasone 03/31/2019 Lisinopril 03/21/2020 Penicillins Rash, Unspecified 03/31/2019 Raltegravir 03/31/2019 Sulfa (Sulfonamide Antibiotics) 03/31/2019 Tetracyclic Antidepressants 03/31/2019 Medications beclomethasone (QVAR REDIHALER) 40 mcg/actuation inhaler Inhale 1 puff into the lungs 2 (two) times daily. Active emtricita-rilpi virine-tenof DF (COMPLERA) 200-25-300 mg Tab Take 0.5 tablets by mouth daily. Active nicotine (NICODERM CQ) 21 mg/[address] 1 patch onto the skin daily. Active UNABLE TO FIND Med name or identifying information: medical canabis as directed Active furosemide (LASIX) 20 MG tablet Take 20 mg by mouth daily. Active sacubitriL-vals precious (ENTRESTO) 24-26 mg per tablet Take 1 tablet by mouth daily. Active dextroamphetami ne-amphetamine (ADDERALL) 30 mg tablet Take 30 mg by mouth every morning. Active bictegrav-emtri cit-tenofov ala 50-200-25 mg Tab Take 1 tablet by mouth daily. 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 11/11/2019 ADHD 11/11/2019 Asymptomatic HIV infection 11/11/2019 HCV infection 11/11/2019 Chest pain 11/09/2019 Surgical History Surgery Date Site/Laterality Comments APPENDECTOMY Medical History Medical History Date Comments Hepatitis C HIV (human immunodeficiency virus infection) (HC C) Osteoarthrosis Nausea Attention deficit disorder Allergic rhinitis Blood transfusion without reported diagnosis Coronary artery disease Social History Tobacco Use Types Packs/Day Years Used Date Smoking Tobacco: Former Cigarettes Q uit: 09/09/2019 Smokeless Tobacco: Never Comments:Quit smoking 7 kang hs ago Alcohol Use Standard Drinks/Week Comments Yes 0 (1 standard drink = 0.6 oz pur e alcohol) rarely Comments No Sex and Gender Information Value Date Recorded Sex Assigned at Not on file Legal Sex Female 5:31 PM PDT Gender Identity Not on file Sexual Orientation Not on file Obstetrics History Last Filed Vital Signs Vital Sign Reading Time Taken Comments Blood Pressure 151/55 03/27/2020 2:50 PM PDT Pulse 69 03/27/2020 2:50 PM PDT Temperature 36.2 C (97.2 F) 03/27/2020 2:50 PM PDT Respiratory Rate 18 03/27/2020 1:15 PM PDT Oxygen Saturation 98% 03/27/2020 2:50 PM PDT Inhaled Oxygen Concentration - - Weight 66.4 kg (146 lb 6.2 oz) 03/27/2020 8:44 A M PDT Height 160 cm (5' 3) 03/27/2020 8:44 AM PDT Body Mass Index 25.93 03/27/2020 8:44 AM PDT Plan of Treatment Health Maintenance Due Date Last Done Comments W DTAP, TDAP, and TD Vaccine s (10 year Adult) 09/12/1971 W Breast Cancer Screening 1993 W Annual Fecal Occult Blood Test / FIT [address] Colonography 1998 W Cologuard 1998 W Colonoscopy 1998 W Colorectal Cancer Screening 1998 W Sigmoidoscopy 1998 W Zoster Vaccines (1 of 2) 09/12/2003 W Pneumococcal Vaccine: 65+ Years (2 of 2 - PCV) 04/24/2009 04/24/2008 W DXA Scan 2018 W Glaucoma Screening 2018 W Adult Annual Exam 05/24/2020 05/24/2019, 9 W Influenza Vaccine (#1) 2025 Medical Devices Implanted Type Area City Tax Auditor Device Identifier Shelf Expiration Date Model / Serial / Lot (C) Stent Vision Rx 4.0 X 12 - [id number] Implanted:Qty: 1 on 11/11/2019 by Umberto Carnes MD at [facility] STENT Left: OM- Coronary CH VASCULAR CONTRACTED 02/05/2021 [id number] Insurance MEDICARE PART A AND B [facility] OTHER MEDICAL GROUP Care Teams Poultry Farm Laborer Relationship Specialty Start Date End Date Lopez Andersen MD PCP - General Internal Medicine 11/09/19
--- OUTSIDE RECORDS SUMMARY | 2025-03-13 14:36 | XMS_ITS | Encounter Summary ---
Author Organization [facility] and [facility] Address [address] [facility] [place] [address] Care Team Providers Care Coil Connector Name Role Phone Lopez Andersen MD Primary Care Provider Pcp, Giles Martinez Unavailable Unavailable Louis Burleson MD Unavailable [phone] Libia Cota RN Unavailable Encounter Details Date Type Department Care Team (Late st Contact Info) Description 01/17/2025 Telephone [facility] [address] [place] [address] Dermatology NO ADDRESS FOUND Social History Tobacco Use Types Packs/Day Years Used Date Smoking Tobacco: Former Cigarettes 1 50 0 10/01/1969 - 10/02/2019 Smokeless Tobacco: Never Alcohol Use Standard [...] on filedocumented in this encounter Care Teams Coil Connector Relationship Specialty [place] [address] [address] [facility] [address] PCP - General Internal Medicine 07/16/18 PcpGiles [facility] [address] [place] [address] PCP - Other Care Provider 06/08/22 Louis Burleson MD [address] [place], [place] [phone] Psychiatry 07/30/18 Libia Cota, RN [address] [place] [address] Hand TapperAprn 01/13/25 01/17/25 documented as of this encounter
--- OUTSIDE RECORDS SUMMARY | 2025-03-13 14:36 | XMS_ITS | Encounter Summary ---
Author Organization [facility] Address [address] [place] [address] Care Team Providers Care Wardrobe Coordinator Name Role Phone Lopez Andersen MD Primary Care Provider Reason for Visit * Reason Comments Medication Refill Encounter Details Date Type Department Care Team (Late st Contact Info) Description 07/30/2020 Refill Positive Care [address], [address] [place] [phone] Louis Burleson MD [address] [facility] [address] [place] [address] Social History Tobacco Use Types Packs/Day Years Used Date Smoking Tobacco: Former Cigarettes 0.5 1 0 07/27/2018 - 07/27/2019 Smokeless Tobacco: Never Comments:on and [...] documented as of this encounter Care Teams Wardrobe Coordinator Relationship Specialty [place] [address] [address] [place] [address] PCP - General Internal Medicine 08/29/14 documented as of this encounter
--- OUTSIDE RECORDS SUMMARY | 2025-03-13 14:37 | XMS_ITS | Data Portability ---
Author Organization [facility], [facility] Address [address] [place] [address] Care Team Providers Care Coffee Maker Servicer Name Role Phone JAH HARTMAN Referring Provider Unavailable Unavailable Referring Provider Unavailable Assessment Encounter Date Assessment Date Assessment LastModified by Organization Details LastModified Time 01/26/2025 01/26/2025 Today I evaluated the patient. I ordered and reviewed Xrays with her. I reviewed her diagnosis and treatment plan. I removed all of her sutures except for 1. I obtained a swab cx of the wound dorsal Right foot. I manually debrided the Right foot wound through the layer of subcutaneous tissue using a sterile tissue nipper. I removed as much fibrotic tissue as possible. I applied a dressing with abx ointment and a DSD. I instructed her to perform daily dressing changes in the same fashion. Keep her foot dry. I immobilized her back into the CAM boot. She will remain NWB with a knee scooter. She will follow up in 1 week for wound care and to review her PCR results. [email or web address] Not available 01/26/2025 16:03:52 02/01/2025 02/01/2025 Today I evaluated the patient. We had a lengthy discussion reviewing all of her PCR results. I reviewed her diagnosis and treatment plan. I instructed her to continue taking Clindamycin 300mg QID to completion. I removed 1 remaining suture. I manually debrided the Right foot wound through the layer of subcutaneous tissue using a sterile tissue nipper. I removed as much fibrotic tissue as possible. I applied a dressing with abx ointment and a DSD. I instructed her to perform daily dressing changes in the same fashion. Keep her foot dry. I immobilized her back into the CAM boot. She will remain NWB with a knee scooter. States she will not be able to follow up because she is moving to the [facility] until May to live with her daughter. [email or web address] Not available 02/01/2025 17:24:52 Plan of Treatment Reminders Order Date Submit Date Provider Last Modified By Organization Details Last Modified Time Details Appointments None recorded. Lab infectious disease panel - Right dorsal foot wound 2024 025 [facility], [facility], [address], [place], [address], 12:45:43 Referral None recorded. Procedures None recorded. Surgeries None recorded. Imaging XR, foot, 3 or more view 2024 025 [email or web address], [address] [place] [address] [address], [place], [address], 5 15:07:36 Medication Orders None recorded. Patient TargetsNo targets recorded. Patient InstructionsNo instructions recorded. Reason for Referral None Reported. Results Created Date Observation Date Name Description Value Unit Range Abnormal Flag Note LastModifiedBy Organization Detail LastModifiedTime 01/27/20 25 XR, foot, 3 or more view No observ ation record ed. [address] [place] [address]_[facility] [address] [facility] [address], [place], [address], 01/26/2025 14:46:38 Result Notes None recorded. Problems Name Problem SNOMED Code Status Onset Date Resolution Date Notes Provider Name and Address Organization Details Recorded Time Chronic ulcer of right foot Active 2024 Jah Hartman DPM [address], [place], [address], [place] [facility] 5 14:41:54 Cellulitis of right foot 6144636349936 9105 Active 2024 Jah Hartman DPM [address], [place], [address], [place] [facility] 5 16:04:00 Hammer toe 496317579 Active 2024 Jah Hartman, DPM [address] [facility] [address], [place], [address], [place] [facility] 5 16:04:12 Problem Notes None recorded. Medical Equipment None Reported. Allergies Allergen ID Allergen Name Allergen Category Reaction Reaction Severity Criticality Documentation Date Start Date Code Code System Note Provider Name and Address Organization Details Recorded Time 249507 sodium aminobenz oate Not available Not available Not available Not available 01/26/20252018 76947 3 RxNorm Not Available lam - External Data Service - prod 5 15:08:12 665959 Local anestheti c (substanc e) medicatio n Not available Not available Not available 01/26/20252018 00352 7003 SNOMED Not Available lam - External Data Service - prod 5 15:08:12 040262 atazanavi r medicatio n Not available Not available Not available 01/26/20252018 93606 7 RxNorm Not Available lam - External Data Service - prod 5 15:08:12 223665 codeine medicatio n Not available Not available Not available 01/26/20252018 2670 RxNorm Not Available lam - External Data Service - prod 5 15:08:12 921110 Iodinated contrast media (substanc e) medicatio n dyspnea Not available [facility] 01/26/20252019 98187 2004 SNOMED Pt had one contr ast react ion when she had one CT test done few years ago when she had app[facility] dect[facility] my at [facility] [place]. She said that she can not breat h. Not Available lam - External Data Service - prod 5 15:08:12 437882 diazepam medicatio n Not available Not available Not available 01/26/20252018 3322 RxNorm Not Available lam - External Data Service - prod 5 15:08:12 046529 erythromy chyna medicatio n Not available Not available Not available 01/26/20252018 4053 RxNorm Not Available lam - External Data Service - prod 5 15:08:12 096387 fluticaso ne Not available Not available Not available Not available 01/26/20252018 43131 RxNorm Not Available [facility] Data [employer] - prod 5 15:08:12 101492 lisinopri l medicatio n Not available Not available Not available 01/26/20252019 07111 RxNorm Not Available [facility] Data [facility] - prod 5 15:08:12 205181 Product containin g penicilli n (product) medicatio n Not available Not available Not available 01/26/20252018 12350 8001 SNOMED Not Available [facility] [employer] [facility] - prod 5 15:08:12 441939 raltegrav ir medicatio n Not available Not available Not available 01/26/20252018 45156 2 RxNorm Not Available [facility] [employer] - prod 5 15:08:12 484181 Substance with sulfonami de structure and antibacte rial mechanism of action (substanc e) medicatio n Not available Not available Not available 01/26/20252018 01812 8003 SNOMED Not Available [facility] Data [facility] - prod 5 15:08:12 904434 maprotili ne medicatio n Not available Not available Not available 01/26/20252018 6646 RxNorm Not Available [facility] Data [employer] - prod 5 15:08:12 022101 carvedilo l medicatio n dyspnea Not available Not available 01/26/20252020 20798 RxNorm Not Available [facility] Data [employer] - prod 5 15:08:14 420391 rosuvasta tin medicatio n rash Not available high 01/26/20252019 26145 2 RxNorm Not Available [facility] Data Service - prod 5 15:08:14 015226 4-aminobe nzoic acid medicatio n Not available Not available Not available 01/26/20252013 74 RxNorm unrec ogniz ed react ion (text : Unkno wn, code: unkno wn) (from exter nal sourc e) Not Available lam - External Data Service - prod 5 15:08:15 266747 aspirin medicatio n Not available Not available Not available 01/26/20252013 1191 RxNorm unrec ogniz ed react ion (text : Unkno wn, code: unkno wn) (from exter nal sourc e) Not Available lam - External Data Service - prod 5 15:08:15 725524 sulfasala zine medicatio n hives Not available Not available 01/26/20252016 9524 RxNorm Not Available lam - External Data Service - prod 5 15:08:15 270892 tetracycl ine medicatio n Not available Not available Not available 01/26/20252013 68680 RxNorm unrec ogniz ed react ion (text : Unkno wn, code: unkno wn) (from exter nal sour e) Not Available lam - External Data Service - prod 5 15:08:15 108554 procainam michael medicatio n Not available Not available Not available 01/26/20252003 8700 RxNorm Not Available lam - External Data Service - prod 5 15:08:17 767169 doxycycli ne Not available Not available Not available [facility] 01/26/20252024 3640 RxNorm Back pain unrec ogniz ed react ion (text : Other , code: 05735 8002) (from exter nal sour e) Not Available lam - External Data Service - prod 5 15:08:29 500096 apixaban medicatio n Not available Not available Not available 01/26/20252020 91472 30 RxNorm SOB Not Available lam - External Data Service - prod 5 15:08:29 879521 verapamil medicatio n Not available Not available high 01/26/20252022 20171 RxNorm Edema unrec ogniz ed react ion (text : Other , code: 69747 8002) (from exter nal [facility] e) Not Available lam - External Data Service - prod 15:08:29 347393 aluminum aspirin Not available other Not available low 02/01/20252003 611 RxNorm Not Available lam - External Data Service - prod 05:42:38 Medications Name Sig Start Date Stop Date Status Note LastModified by Organization Details LastModified Time doxycycline hyclate 100 mg capsule TAKE 1 CAPSULE BY MOUTH TWICE DAILY FOR 10 DAYS active Not Available Not Available No t Available clindamycin HCl 300 mg capsule Take 1 capsule every 6 hours by oral route. 2024 active Not Available Not Available Not Avai lable azithromycin 250 mg tablet TAKE 2 TABLETS BY MOUTH FOR 1 DAY THEN TAKE 1 TABLET BY MOUTH DAILY FOR 4 DAYS active Not Available Not Available No t Available cephalexin 500 mg capsule TAKE 1 CAPSULE BY MOUTH THREE TIMES A DAY FOR 10 DAYS active Not Available Not Available No t Available budesonide-for moterol HFA 160 mcg-4.5 mcg/actuation aerosol inhaler INHALE 2 PUFFS BY MOUTH TWICE DAILY active Not Available Not Available No t Available Vitals Date Recorded Body height Body mass index (BMI) Body weight Heart rate Systolic And Diastolic Provider Name and Address Organization Details Last Updated DateTime 01/26/2025 160.02 cm 23.9 kg/m2 24823.97 g 89 /min 159/93 mm[Hg] Lanie Proctor [place] - [facility] 01/26/2025 14:26:57 Date Recorded Body height Body mass index (BMI) Body weight Heart rate Systolic And Diastolic Provider Name and Address Organization Details Last Updated DateTime 02/01/2025 160.02 cm 23.9 kg/m2 84925.97 g 63 /min 119/75 mm[Hg] Naz Armstrong [place] - [facility] 02/01/2025 16:53:19 Date Recorded Body temperature Provider Name a nd Address Organization Details Last Updated DateTime 02/01/2025 97.7 [degF] Teressa Nedra [place] - [facility] 02/01/2025 16:58:40 Social History Question Answer Notes LastModified by Organizat ion Details LastModified Time Tobacco Smoking Status Never Smoker Not Available [facility] 01/26/2025 14:06:37 What Is Your Level Of Caffeine Consumption? None Information not available 02/01/2025 Shoe Size 8 API-13 Information no t available 01/26/2025 What Was The Date Of Your Most Recent Tobacco Screening? 02/01/2025 Information not available 02/01/2025 Sex: Unknown Functional Status Question Answer Note LastModified by Organizat ion Details LastModified Time Do you use any illicit or recreational drugs? No API-13 Information not available 01/26/2025 What is your level of alcohol consumption? None Information not available 02/01/2025 Mental Status None recorded. Family History Nothing Reported. Medical History No medical history recorded. Gynecological HistoryNo gynecological history recorded. Obstetrics History GPAL:G 0 P 0 0 0 0 Past Encounters Encounter ID Performer Location Encounter Start Date Encounter Closed Date Diagnosis/Indication Diagnosis SNOMED-CT Code Diagnosis ICD10 Code Diagnosis IMO Codes Diagnosis Note [id number] Jah Hartman DPM [facility] [facility] [address] [place] [address] 01/26/2025 14:00:42 01/26/2025 15:07:36 Chronic ulcer of right foot 3878204436 3046198 L97.863 4972624 Cellulitis of right foot 3835079660 2492331 L03.115 876660 Hammer toe 760176631 M20 .41 57728739 [id number] Jah Hartman DPM [facility] [facility] [address] [place] [address] 02/01/2025 16:51:14 02/01/2025 17:14:07 Chronic ulcer of right foot 0337859983 8013424 L97.951 1518388 Cellulitis of right foot 5801838725 2280285 L03.115 097635 Hammer toe 003256329 M20 .41 56352865 Health Concerns Section Related Observation LastModified by Organization Detai ls LastModified Time None Recorded Concern Status LastModified by Organization Details LastModified Time None Recorded Advance Directives Directive None Recorded Payers Insurance Date Sequence Insurance Name Policy Number Policy Gentile Covered Member ID Gentile Member ID Guarantor Name 01/25/2025 1 *SELF PAY* Terra Claros 01/27/2025 3 MEDICARE-[place] (MEDICARE) Melly Claros [id number] Melly Claros 02/01/[address] [facility] Melly Claros [id number] Melly Claros 02/01/2025 1 [facility] Melly Claros [id number] 5 Melly Claros Notes Date Note Type Note Provider Name and Address Organization Details Recorded Time 01/26/2025 text/html Az HPI (patient-facing)Rep orted by PatientHPIFor describe the reason for your visit, patient reports . For location, patient reports__. For what body part?, patient reports . For date problem started, patient reports . For treatments tried, patient reports . For aggravating factors, patient reports . For alleviating factors, patient reports . 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 She has been performing dressing changes with with SSD. Has completed a course of Keflex postoperatively. Remains NWB in a CAM boot and using a knee scooter. Denies F/C/N/V today.Referred to the office by Dr. Miguel Simpson.Reported by patient on 01/26/2025 Jah Hartman, DPJames [facility], [place], [address], [place] - [facility] 01/26/2025 16:08:51 02/01/2025 text/html Az HPI (patient-facing)Rep orted by PatientHPIFor describe the reason for your visit, patient reports . For location, patient reports__. For what body part?, patient reports . For date problem started, patient reports . For treatments tried, patient reports . For aggravating factors, patient reports . For alleviating factors, patient reports . 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 She was started on Clindamycin 2 days ago and has noticed some mild headaches but otherwise tolerating it. She has been performing daily dressing changes with colloidal silver that she makes at home. Remains NWB in a CAM boot and using a knee scooter. Denies F/C/N/V today. She is going to temporarily move to the [facility] with her daughter until May.Referred to the office by Dr. Miguel Simpson. Jah Hartman DPM [address], [place], [address], [place] [facility] 02/01/2025 17:25:16 OBGyn Episode No OBEpisode recorded.
--- OUTSIDE RECORDS SUMMARY | 2025-03-13 14:37 | XMS_ITS | Encounter Summary ---
Author Organization [facility] Address [address] [facility] [place] [address] Care Team Providers Care Chef Manager Name Role Phone Lopez Andersen MD Primary Care Provider Pcp, Giles Martinez Unavailable Unavailable Louis Burleson MD Unavailable [phone] Reason for Visit * Reason Onset Date Comments Advice 01/25/2025 Encounter Details Date Type Department Care Team (Late st Contact Info) Description 01/25/2025 Telephone [facility] [place] [address] [place] [address] [place] [address] [place] [address] Advice Social History Tobacco Use Types Packs/Day Years [...] encounter Miscellaneous Notes * Telephone Encounter - Ana Brown - 01/27/2025 3:56 PM PDT Called/spoke to patient stated already has appointment with Dr. Andersen 02/20 and declined going to [facility] to be seen sooner Please advise * Telephone Encounter - Michelle Segura PA - 01/27/2025 1:06 PM PDT - The foot needs to be evaluated for infection. Please advise patient that an appointment with a clinician is necessary so her condition can be assessed. - Please offer same day appointment with any clinician (APC okay) - If patient refuses or if appointment not available, please advise ED or UCC for evaluation. * Telephone Encounter - Denisha Byrd MA - 01/27/2025 12:12 PM PDT Person calling is: Self Reason for Telephone Encounter: Update notes on an existing encounter - Was message/information relayed to caller? Yes - information relayed verbatim. Does the caller have additional questions? Yes - Patient called to discuss possible infection of her surgical site. Informed patient of encounter on 01/25/2025 to schedule OV with any Provider on care team and patient declined to schedule and stated that she would rather receive phone call from Providers office concerning the matter. Patient is requesting a call back HANSA at [phone] in case of infection so that she can have another scrapping to receive results sooner than later and have antibiotics prescribed in a timely manner. Patient stated that she is allergic to different medications and only her Provider could ensure she is on the proper antibiotics. MHO or Phone Cell: Mobile phone #: [phone] - Ok to leave confidential, detailed message Routing to RN. Patient declined appointment. Please advise. * Telephone Encounter - Hemant Peoples NP - 01/25/2025 1:25 PM PDT Please advise patient to reach out to her orthopedic surgeon to evaluate the surgery site. If not, please kindly assist patient with scheduling an OV appointment with any available provider for formal evaluation on the wound. * Telephone Encounter - Susi Naidu MA - 01/25/2025 1:17 PM PDT Images from the original note were not included. Meghana Claros to Gama Pamf Cad Lg Dispatcher (supporting Lopze Andersen MD) MB 01/25/25 9:34 AM I need to get my foot checked out at the wound clinic. It isn???t healing right. Patient's last face to face: Last visit to Internal Medicine: Date: 01/18/2025 Provider: LOPEZ ANDERSEN Next visit to Internal Medicine: Date: 02/20/2025 Provider: LOPEZ ANDERSEN Patient is requesting referral to wound care. Order(s) and diagnosis pended. Documented by Susi Naidu MA, GAMA Arc Welding Machine Operator * Telephone Encounter - Edilma Leach RN - 01/25/2025 11:59 AM PDT Last attempt to reach patient by phone was unsuccessful, voicemail left as shown below: Aditya Kowalski My name is JAYLON France an Advice Nurse from Lopez Andersen MD 's office. I'm sorry I missed you, please call our office if you have any other questions or symptoms and let us know how wecan best assist you Call Center Agents: If patient calls back, please warm-transfer to GAMA RN for triage at extension [phone] or RN_GAMA Queue People Operating Technology and Milestone Scientificer Users: If patient calls back, please warm-transfer to GAMA RN for triage at [phone] Route encounter to GAMA chain testing machine operator: P GAMA AYON RN [[id number]] Edilma Leach RN, GAMA RN * Telephone Encounter - Edilma Leach RN - 01/25/2025 11:37 AM PDT First attempt to reach patient by phone was unsuccessful, voicemail left as shown below: Aditya Kowalski My name is Edilma RN an Advice Nurse from Lopez Andersen MD 's office. I'm sorry I missed you, a nurse will call you back again. Thank you Call Center Agents: If patient calls back, please warm-transfer to MIST RN for triage at extension [phone] or RN_MIST Queue [employer] Technology and [employer] Users: If patient calls back, please warm-transfer to MIST RN for triage at [phone] MIST chain testing machine operator: P GAMA AYON RN [[id number]] Edilma Leach RN, GAMA RN * Telephone Encounter - Susi Naidu MA - 01/25/2025 10:41 AM PDT Routing to RN for advice appointment declined requesting advice Last visit to Internal Medicine: Date: 01/18/2025 Provider: LOPEZ ANDERSEN Next visit to Internal Medicine: Date: 02/20/2025 Provider: LOPEZ ANDERSEN * Telephone Encounter - Francheska Carrington - 01/25/2025 10:21 AM PDT Person calling is: Self Symptom call type First Call Can you tell me about the symptoms you are feeling & where are they located? Right foot surgical sight 12/22/2024 looks worse How long has this been occurring? 1 MONTH(S) Current Temperature: Temperature has not been taken. Are your symptoms becoming worse? Yes - swelling worse Have you had any treatments or taken PRESCRIPTION or over the counter medication(s) to treat your symptoms? Yes - medication(s)/treatment(s) tried Cephalexin, ointment, and bandages If you need a prescription, which pharmacy would you like to send the prescription to? [id number] - [place], [place] - [address] AT [facility] & [place] [address] Are you allergic to any medications? Yes - Review of the patient's allergies finds: Anesthetics, Amide (Palpitations) Anesthetics, Belkis (Unknown) Atazanavir (Elevated AST/ALT 10 x normal. Occurred in combination with raltegravir, so it is unknown which drug was causative) Raltegravir (Elevated AST/ALT 10 x normal. Occurred in combination with atazanavir, so it is unknown which drug was causative) Aminobenzoate (Unknown) Codeine Hydrochloride (Unknown) Erythromycin (Palpitations) Penicillins (Keflex ok per patient) Sulfasalazine Sulfa Antibiotics (Unknown) Tetracycline Hcl (Unknown) Fluticasone (Developed shortness of breath after using nasal fluticasone) Rosuvastatin Lisinopril (Hives) Apixaban (SOB) Iodinated Diagnostic Agents Parabens Verapamil (Edema) Doxycycline (Back pain) Appointment Scheduled? No - patient wants advice prior to scheduling. Is call for PCP? No - Advice nurse Would you prefer to receive a response through MHO or phone? Phone Cell: Mobile phone #: [phone] - Ok to leave confidential, detailed message documented in this encounter Plan of Treatment Not on file documented as of this encounter Visit Diagnoses Diagnosis Cellulitis of left foot- Primary Cellulitis and abscess of foot, except toes documented in this encounter Care Teams Chef Manager Relationship Specialty [place] [address] [place] [address] PCP - General Internal Medicine 07/16/18 Pcp, Giles Deng [facility] [address] [place] [address] PCP - Other Care Provider 06/08/22 Louis Burleson MD [address] [place] [address] [facility] [address] [place] [address] Psychiatry 07/30/18 documented as of this encounter
--- OUTSIDE RECORDS SUMMARY | 2025-03-13 14:37 | XMS_ITS | Encounter Summary ---
Author Organization [facility] Practices Address [address] [place] [address] Care Team Providers Care Warehouse Examiner Name Role Phone Lopez Andersen MD Primary Care Provider Pcp, Giles Martinez Unavailable Unavailable Louis Burleson MD Unavailable [phone] Encounter Details Date Type Department Care Team (Late st Contact Info) Description 03/01/2025 Telephone [facility] [address] [facility], [address] [place] [address] Nick Colon MD [address] [facility] [address] [place] [address] Social History Tobacco Use Types Packs/Day Years [...] encounter Miscellaneous Notes * Telephone Encounter - Magnolia Dunaway - 03/01/2025 3:56 PM PDT Remote transmissions only * Telephone Encounter - Tennille Khan - 03/01/2025 3:42 PM PDT Called pt in regards to [employer] Pacemaker Yearly check, pt denied setting appt due to how uncomfortable the pt was during their last pacemaker visit w/ senior radiation protection technician 03/2024, please asssit with following steps. documented in this encounter Plan of Treatment Not on file documented as of this encounter Visit Diagnoses Not on filedocumented in this encounter Care Teams Warehouse Examiner Relationship Specialty [place] [address] [place] [id number] PCP - General Internal Medicine 07/16/18 Pcp, Giles Deng [facility] [address] [place] [address] PCP - Other Care Provider 06/08/22 Louis Burleson MD [address] [facility] [address] [place] [address] Psychiatry 07/30/18 documented as of this encounter
--- OUTSIDE RECORDS SUMMARY | 2025-03-13 14:37 | XMS_ITS | Clinical Summary ---
Author Organization [facility] Address [address] [place] [address] Care Team Providers Care Applied Psychology Chair Name Role Phone Lopez Andersen MD Primary Care Provider [phone] Allergies Active Allergy Reactions Criticality Noted Date Comments Anesthetics - Amide Type - Select Amino Amides Palpitations Medium 08/29/2003 May have been more a side effect of an epinephrine-containi ng local dental anesthetic Carvedilol Shortness Of Breath 08/06/2020 Erythromycin Other (See Comments),Palpitation s Low 03/09/2017 Palpitations Fluticasone Shortness Of Breath Low 06/09/2018 Developed shortness of breath after using nasal fluticasone Iodinated Contrast Media Anxiety 09/23/2022 Lisinopril 01/16/2020 Hives Penicillins Hives,Rash Medium 08/29/2003 Raltegravir Other (See Comments) High 08/05/2014 Elevated AST/ALT 10 x normal. Occurred in combination with atazanavir, so it is unknown which drug was causative. Elevated AST/ALT 10 x normal. Occurred in combination with atazanavir, so it is unknown which drug was causative Rosuvastatin Rash Medium 01/09/2020 Sulfa (Sulfonamide Antibiotics) Hives 08/29/2003 Medications budesonide-glyc opyr-formoterol (Breztri Aerosphere) 160-9-4.8 mcg/actuation HFA aerosol inhaler Inhale. Active nicotine (NICODERM CQ) 21 mg/[address] 1 patch on the skin daily. Active dextroamphetami ne-amphetamine (AdderalL) 30 mg tablet Take by mouth. Activ e methylphenidate HCl (RITALIN) 20 MG tablet Take 1 tablet (20 mg total) by mouth 2 (two) times a day. Max Daily Amount: 40 mg Active doravirine 100 mg tablet Take by mouth. Activ e lamiVUDine (EPIVIR) 300 MG tablet Take 1 tablet (300 mg total) by mouth daily. Active aspirin 81 MG EC tablet Take by mouth daily. Take with food. Active doravirine (Pifeltro) 100 mg tablet Take by mouth. Activ e buPROPion (WELLBUTRIN) 100 MG tablet Take 1 tablet (100 mg total) by mouth 2 (two) times a day. Active albuterol (ACCUNEB) 2.5 mg /3 mL (0.083 %) nebulizer solution Take 3 mL (2.5 mg total) by nebulization every 4 (four) hours as needed. Active lisinopriL (PRINIVIL) 20 MG tablet Take 1 tablet (20 mg total) by mouth daily. 30 tablet 3 Active lidocaine (LIDODERM) 5 % Place 1 patch on the skin daily over 12 hours. Remove & Discard patch within 12 hours (12 hours on, 12 hours off) or as directed by MD. 30 patch 3 Active Social History Tobacco Use Types Packs/Day Years Used Date Smoking Tobacco: Never Passive Smoke Exposure: Never Smokeless Tobacco: Never Tobacco Cessation:Counseling Given: Not Answered Alcohol Use Standard Drinks/Week Comments Never 0 (1 standard drink = 0.6 oz pur e alcohol) Comments No Sex and Gender Information Value Date Recorded Sex Assigned at Not on file Legal Sex Female 10:33 AM PDT Gender Identity Not on file Sexual Orientation Not on file Last Filed Vital Signs Vital Sign Reading Time Taken Comments Blood Pressure 163/86 02/25/2023 1:11 PM PDT Pulse 88 02/25/2023 1:11 PM PDT Temperature 36.6 C (97.8 F) 02/25/2023 1:11 PM PDT Respiratory Rate 16 02/25/2023 1:11 PM PDT Oxygen Saturation 98% 02/25/2023 1:11 PM PDT Inhaled Oxygen Concentration - - Weight 68 kg (150 lb) 02/25/2023 1:11 PM PDT Height 160 cm (5' 3) 02/25/2023 1:11 PM PDT Body Mass Index 26.57 02/25/2023 1:11 PM PDT Plan of Treatment Health Maintenance Due Date Last Done Comments Colonoscopy 1955 DXA Scan 1955 Stool DNA (Cologuard) 1955 DTaP, Tdap, and Td Vaccines (1 - Tdap) 1972 Zoster Vaccines (1 of 2) 09/12/2003 Pneumococcal Vaccines 50+ (2 of 2 - PCV) 04/24/2009 04/24/2008 Colorectal Cancer Screening 07/29/2019 FOBT 07/29/2019 07/29/2018 Mammogram 06/14/2023 06/14/2021, 02/0 09/2018, 07/09/2017, Additional history exists COVID-19 Vaccine (2 - season) 2025 11/02/2020 Influenza Vaccine (#1) 2025 RSV Vaccines (1 - 1-dose 75+ series) 2028 Hepatitis A Vaccine Aged Out 01/08/2001 No longe r eligible based on patient's age to complete this topic HPV Vaccines Aged Out No longer eligi ble based on patient's age to complete this topic Hib Vaccines Aged Out No longer eligi ble based on patient's age to complete this topic Insurance MEDICARE [facility] MANAGED CARE Address: [address] [address] [place] [address] [facility]IC[facility] Address: [address] [address] [place] [address] Care Teams Applied Psychology Chair Relationship Specialty [place] [address] [facility] [address] [place] [address] PCP - General Internal Medicine 09/23/22
== END 2025-03-13 13:40 | disposition home or self-care (01) ==
PROVIDERS: PCP Podiatrist Foot & Ankle Surgery; Visit Provider Podiatrist Foot & Ankle Surgery
DX: S92.354D Nondisplaced fracture of fifth metatarsal bone, right foot, subsequent encounter for fracture with routine healing (principal); X58.XXXD Exposure to other specified factors, subsequent encounter; Z98.1 Arthrodesis status; Z87.81 Personal history of (healed) traumatic fracture
CPT/HCPCS: 73700